=== PATIENT | male | born 1935 | race Caucasian/White ===

== ENCOUNTER 2017-10-31 23:45 | Inpatient (IN) | payer OTHER ==
[~2017-10-31] VITALS: Ht 182.9 cm; Wt 101.0 kg
[2017-11-01] VITALS (35 sets, daily range): BP systolic 54–112; BP diastolic 30–91; PULSE 107–140; TEMP 36.6–36.9; O2SAT 85–100; Ht 182.9 cm; Wt 101.0 kg
[2017-11-01] MEDS ORDERED: ICU PROTOCOL FOR HYPERGLYCEMIA PRN (05:15)
[2017-11-01] MEDS ORDERED: VANCOMYCIN CONSULT ACTIVE PRN (05:30)
[2017-11-01] MEDS ORDERED: PIPERACILL/TAZOBAC CONSULT ACTIVE PRN (05:30)
[2017-11-01] MEDS ORDERED: BENZONATATE 100MG CAP PO PRN (05:45)
[2017-11-01] MEDS ORDERED: ACETAMINOPHEN 325 MG TAB PO PRN (05:45)
[2017-11-01] MEDS ORDERED: OXYCODONE HCL IR 5 MG TAB (IMMEDIATE RELEASE) PO PRN (05:45)
[2017-11-01] MEDS ORDERED: ONDANSETRON 8MG OD TAB PO PRN (05:45)
[2017-11-01] MEDS ORDERED: DOCUSATE SODIUM 100 MG/10 ML UDC PO PRN (05:45)
[2017-11-01] MEDS ORDERED: BISACODYL 5 MG TABEC PO PRN (05:45)
[2017-11-01] MEDS ORDERED: NYSTATIN POWDER 15GM BTL EXT PRN (05:45)
[2017-11-01] MEDS ORDERED: PIPERACILL/TAZOBAC IV 3.375 GM in DEXTROSE 5% 50ML 50 ML IV ONE (05:45)
[2017-11-01] MEDS ORDERED: MIDODRINE 10 MG TAB PO PRN (05:45)
[2017-11-01 06:21] LABS: BASO % 0.1 %; BASO ABS # 0.01 K/uL (0-0.2); EOS % 0.1 %; EOS ABS # 0.01 K/uL (0-0.5); HEMATOCRIT 42.1 % (42-52); HEMOGLOBIN 13.3 g/dL (14.0-18.0); IG# 0.04 K/uL (0.00-0.02); LYMPH % 2.8 %; LYMPH ABS # 0.32 K/uL (1.2-3.4); MEAN CELL VOLUME 122.7 fL (80-100); MEAN CORPUSCULAR HEMOGLOBIN 38.8 pg (25-34); MEAN CORPUSCULAR HGB CONC 31.6 g/dl (32-36); MEAN PLATELET VOLUME 11.4 fL (7.4-10.4); MONO ABS # 0.57 K/uL (0.11-0.59); NEUT % 91.7 %; NUCLEATED RED BLOOD CELL ABS 0.46 K/uL (0-0); PLATELET COUNT 107 K/uL (130-400); RED CELL DISTRIBUTION WIDTH CV 21.6 % (11.5-14.5); RED CELL DISTRIBUTION WIDTH SD 97.2 fL (36.4-46.3); WHITE BLOOD COUNT 11.45 K/uL (4.8-10.8)
[2017-11-01] MEDS ORDERED: LEVOFLOXACIN / D5W 750 MG in PREMIXED IN D5W 150 ML IV SCH (06:30)
[2017-11-01] MEDS ORDERED: LEVOFLOXACIN CONSULT ACTIVE PRN (06:30)
--- NOTE | 2017-11-01 06:35 | DIAGNOSTIC IMAGING REPORT ---
CHEST ONE VIEW PORTABLE CLINICAL HISTORY: For Line Placement/Intubation. Acute renal failure. Congestion. COMPARISON STUDY: No previous studies for comparison. FINDINGS: A dual lead left subclavian pacemaker is in place. There is no pneumothorax. There is moderate enlargement of the cardiac silhouette. There are suspected bilateral pleural effusions with bibasilar opacities. There may be elevation the right hemidiaphragm. There is no evidence for pulmonary edema. IMPRESSION: 1. Moderate cardiomegaly without evidence for pulmonary edema. 2. Suspected bilateral pleural effusions with bibasilar opacities which could reflect atelectasis or consolidation. Radiographic follow up is recommended. Electronically signed by: Padilla Gonzalez M.D. 11/01/2017 6:34 AM Dictated Date/Time: 11/01/2017 6:29 AM
[2017-11-01 06:46] LABS: ALBUMIN 2.6 gm/dl (3.4-5.0); CALCIUM 8.7 mg/dl (8.5-10.1); CREATININE 3.83 mg/dl (0.60-1.40); INR 1.5 (0.9-1.1); PTT PATIENT 35.7 SECONDS (21.0-31.0)
[2017-11-01 06:52] LABS: CKMB 3.1 ng/ml (0.5-3.6); PHOSPHORUS 2.5 mg/dl (2.5-4.9); TOTAL PROTEIN 6.5 gm/dl (6.4-8.2)
[2017-11-01] MEDS: LEVALBUTEROL 1.25MG/0.5ML NEB INH SCH ×3 (07:06→20:17)
[2017-11-01] MEDS: IPRATROPIUM BROMIDE NEB SOLN 0.02% 2.5 ML VIAL INH SCH ×3 (07:06→20:17)
--- NOTE | 2017-11-01 07:34 | Critical Care Consultation ---
Critical Care Consultation Date of Consultation: Nov 01, 2017. Attending Physician: Doug Gonzalez M.D. Reason for Consultation: 82-year-old male with end-stage renal disease presenting from outside facility as a direct admission for hypotension and volume overload. History of Present Illness Patient is an 82-year-old male with significant past medical history of end- stage renal disease requiring Thursday/Thursday/Thursday dialysis treatments. The patient has history of CHF as well as atrial fibrillation on Coumadin for anticoagulation. The patient has shortness of breath at baseline requiring supplemental oxygen at home. He has had progressively worsening shortness of breath over the last 48 hours requiring an additional dialysis treatment on Thursday. He was sent from dialysis to the [facility] emergency department secondary to hypotension. Our facility was contacted by [facility] for transfer to higher level of care secondary to possible need for dialysis treatments in the setting of volume overload and CHF. Patient was initially placed on dobutamine in the emergency department. He was transferred to our facility on Levothroid at our recommendation. He received pain medication for his chronic pain syndromes. Upon arrival to the ICU, the patient is resting comfortably. He does complain of shortness of breath which she states occurs all the time and is not new. He denies any fevers or chills. He reports no recent upper respiratory infections. He denies any current headaches, dizziness, lightheadedness, chest pain, palpitations, hemoptysis, nausea, vomiting, or abdominal pain. Past Medical/Surgical History Sick sinus syndrome Pneumonia Dyspnea Hypotension End-stage renal disease Pulmonary edema Obstructive sleep apnea syndrome Diabetes mellitus type 2 Gout Hypothyroidism GERD Osteoarthritis of the knee MRSA CHF Chronic wounds of the lower extremities Atrial fibrillation Hypertension HLD Family History Noncontributory Social History Smoking Status: Never Smoker Smokeless Tobacco Use: No Alcohol Use: none Drug Use: none Marital Status: Housing Status: [facility] Occupation Status: retired Allergies Coded Allergies: Clonidine (Unverified Allergy, Unknown, Unknown, 11/01/17) Erythromycin (Unverified Allergy, Unknown, Unknown, 11/01/17) Glyburide (Unverified Allergy, Unknown, Unknown, 11/01/17) Metolazone (Unverified Allergy, Unknown, Unknown, 11/01/17) Olmesartan (Unverified Allergy, Unknown, unkown, 11/01/17) Simvastatin (Unverified Allergy, Unknown, Unknown, 11/01/17) Current Inpatient Medications Current Inpatient Medications Medications (Trade) Dose Ordered Sig/Monica Route Start Time Stop Time Status Last Admin Dose Admin Norepinephrine Bitartrate 8 mg/ Dextrose 508 ml @ 0 mls/hr Q0M PRN IV 11/01/17 05:02 12/01/17 05:01 Pantoprazole Sodium 40 mg/ Syringe 10 ml @ 5 mls/min DAILY IV 11/01/17 09:00 12/01/17 08:59 Levalbuterol (Xopenex 1.25MG/ 0.5ML Neb) 1.25 mg Q6R INH 11/01/17 09:00 12/01/17 08:59 Ipratropium [place] (Atrovent 0.02% 0.5MG/2.5ML Neb) 0.5 mg Q6R INH 11/01/17 09:00 12/01/17 08:59 Miscellaneous Information (Icu Protocol For Hyperglycemia) 1 ea PRN PRN N/A 11/01/17 05:15 11/03/17 05:14 Vancomycin HCl 1000 mg/Sodium Chloride 270 ml @ 125 mls/hr Q12 IV 11/01/17 09:00 11/11/17 08:59 UNV Miscellaneous Information (Consult) 1 ea UD PRN N/A 11/01/17 05:30 12/01/17 05:29 Piperacillin Sod/ Tazobactam Sod 3.375 gm/Dextrose 115 ml @ 28.75 mls/ hr Q12 IV 11/01/17 09:00 11/11/17 08:59 UNV Miscellaneous Information (Consult) 1 ea UD PRN N/A 11/01/17 05:30 12/01/17 05:29 Levofloxacin 750 mg/Prmx 150 ml @ 100 mls/hr TODAY@0630 IV 11/01/17 06:30 11/01/17 07:59 Acetaminophen (Tylenol Tab) 650 mg Q4H PRN PO 11/01/17 05:45 12/01/17 05:44 Allopurinol (Zyloprim Tab) 100 mg QAM PO 11/01/17 09:00 12/01/17 08:59 Amiodarone HCl (Cordarone Tab) 200 mg QAM PO 11/01/17 09:00 12/01/17 08:59 Atorvastatin Calcium (Lipitor Tab) 20 mg HS PO 11/01/17 21:00 12/01/17 20:59 Benzonatate (Tessalon Perles Cap) 100 mg TID PRN PO 11/01/17 05:45 12/01/17 05:44 Bisacodyl (Dulcolax Tab) 5 mg BID PRN PO 11/01/17 05:45 12/01/17 05:44 Docusate Sodium (coLACE SYRUP) 50 mg BID PRN PO 11/01/17 05:45 12/01/17 05:44 Senna/Docusate Sodium (Senokot S Tab) 2 tab HS PO 11/01/17 21:00 12/01/17 20:59 Levothyroxine Sodium (Synthroid Tab) 112 mcg DAILYBB PO 11/01/17 06:00 12/01/17 05:59 Magnesium Oxide (Mag-Ox Tab) 400 mg QAM PO 11/01/17 09:00 12/01/17 08:59 Midodrine (Proamatine Tab) 20 mg DAILY PRN PO 11/01/17 05:45 12/01/17 05:44 Midodrine (Proamatine Tab) 10 mg TID@08,12,17 PO 11/01/17 08:00 12/01/17 07:59 Vitamin B Complex/ Vit C/Folic Acid (Nephrocaps) 1 cap DAILY PO 11/01/17 09:00 12/01/17 08:59 Nystatin (Mycostatin Powder) 1 appln TID PRN EXT 11/01/17 05:45 12/01/17 05:44 Oxycodone HCl (Roxicodone Immediate Rel Tab) 2.5 mg Q12H PRN PO 11/01/17 05:45 11/15/17 05:44 Polyethylene (Miralax Powder Packet) 17 gm QPM PO 11/01/17 21:00 12/01/17 20:59 Triamcinolone Acetonide (Kenalog 0.1% Oint) 1 appln BID EXT 11/01/17 09:00 12/01/17 08:59 Warfarin Sodium (Coumadin Tab) 2 mg QPM PO 11/01/17 21:00 12/01/17 20:59 UNV Ondansetron HCl (Zofran Odt) 8 mg Q8H PRN PO 11/01/17 05:45 12/01/17 05:44 Levofloxacin (Consult) 1 ea UD PRN N/A 11/01/17 06:30 12/01/17 06:29 Review of Systems A complete 10-point Review of Systems was discussed with the patient, with pertinent positives and negatives listed in the History of Present Illness. All remaining Review of Systems questions can be considered negative unless otherwise specified. Physical Exam Date Time Temp Pulse Resp B/P (MAP) Pulse Ox O2 Delivery O2 Flow Rate FiO2 11/01/17 06:12 111 34 99/30 (53) 92 Nasal Cannula 4.0 11/01/17 05:00 110 84/53 (63) 94 Nasal Cannula 4.0 11/01/17 04:56 110 72/50 (57) 91 Nasal Cannula 4.0 11/01/17 04:32 36.7 112 30 103/91 (95) 90 Nasal Cannula 4.0 11/01/17 04:20 36.7 112 22 103/91 93 Nasal Cannula 4.0 VITAL SIGNS - Vital signs and nursing notes were reviewed. GENERAL - 82-year-old male appearing his stated age who is in no acute distress. Communicates well with provider and answers questions appropriately. SKIN - Multiple skin tears. Multiple pressure-like wounds. HEAD - NC/AT. EYES - PERRL with EOMI bilaterally. Sclera anicteric. EARS - No deformities of external structures noted on gross examination bilaterally. NOSE - Midline and without cyanosis. MOUTH/OROPHARYNX - Without perioral cyanosis. Buccal mucosa pink and dry. NECK - Neck with FROM. Supple to palpation. LUNGS - Chest wall symmetric without accessory muscle use, intercostals retractions, or central cyanosis. Normal vesicular breath sounds CTA B/L. No wheezes, rales, or rhonchi appreciated. CARDIAC - RRR with S1/S2. No murmur, rubs, or gallops appreciated. ABDOMEN - Abdominal contour scaphoid without pulsations or visible masses. BS normoactive all four quadrants. No tenderness, palpable masses, hepatosplenomegaly, or ascites noted. EXTREMITIES - Bilateral lower extremity edema. NEUROLOGIC - Cranial nerves II through XII grossly intact. PSYCH - A&Ox3 and cooperates fully with examiner. Pt is very pleasant and interacts well with examiner. Laboratory Results Last 24 Hours Test 11/01/17 05:02 11/01/17 05:42 11/01/17 05:51 11/01/17 06:11 Creatine Kinase MB Ratio Blood Gas Sample Site R Radial Bedside Blood Gas pH (LAB) 7.35 Bedside Blood Gas pCO2 (LAB) 42 mmHg Bedside Blood Gas pO2 (LAB) 77 mmHg Bedside Blood Gas HCO3 (LAB) 24 meq/L Bedside Blood Gas Total CO2 25 mEq/l Bedside Blood Gas Base Excess (LAB) -2.0 meq/L Bedside Blood Gas O2 Saturation 95.0 % [place] Test Pass Oxygen Delivery Device Cannula Lactic Acid Level 2.9 mmol/L White Blood Count 11.45 K/uL Red Blood Count 3.43 M/uL Hemoglobin 13.3 g/dL Hematocrit 42.1 % Mean Corpuscular Volume 122.7 fL Mean Corpuscular Hemoglobin 38.8 pg Mean Corpuscular Hemoglobin Concent 31.6 g/dl Platelet Count 107 K/uL Mean Platelet Volume 11.4 fL Neutrophils (%) (Auto) 91.7 % Lymphocytes (%) (Auto) 2.8 % Monocytes (%) (Auto) 5.0 % Eosinophils (%) (Auto) 0.1 % Basophils (%) (Auto) 0.1 % Neutrophils # (Auto) 10.50 K/uL Lymphocytes # (Auto) 0.32 K/uL Monocytes # (Auto) 0.57 K/uL Eosinophils # (Auto) 0.01 K/uL Basophils # (Auto) 0.01 K/uL RDW Standard Deviation 97.2 fL RDW Coefficient of Variation 21.6 % Immature Granulocyte % (Auto) 0.3 % Immature Granulocyte # (Auto) 0.04 K/uL Nucleated RBC Absolute Count (auto) 0.46 K/uL Nucleated Red Blood Cells % 4.0 % Diagnostic Results Radiological imaging and reports were reviewed by myself. Radiologist's Interpretation as follows: CHEST ONE VIEW PORTABLE CLINICAL HISTORY: For Line Placement/Intubation. Acute renal failure. Congestion. COMPARISON STUDY: No previous studies for comparison. FINDINGS: A dual lead left subclavian pacemaker is in place. There is no pneumothorax. There is moderate enlargement of the cardiac silhouette. There are suspected bilateral pleural effusions with bibasilar opacities. There may be elevation the right hemidiaphragm. There is no evidence for pulmonary edema. IMPRESSION: 1. Moderate cardiomegaly without evidence for pulmonary edema. 2. Suspected bilateral pleural effusions with bibasilar opacities which could reflect atelectasis or consolidation. Radiographic follow up is recommended. Assessment & Plan (1) Pneumonia (2) CHF (congestive heart failure) (3) ESRD on hemodialysis (4) Hypotension Reason Critically Ill: 82-year-old male with end-stage renal disease presenting from outside facility as a direct admission for hypotension and volume overload. Neuro - * CAM ICU: NEGATIVE * Chronic Pain: * Oxycodone/Tylenol PRN Cardiac - * CHF with hypotension in the setting of ARF on hemodialysis: * Check Echo for EF. * Needed additional round of dialysis yesterday. * BNP >02113 * Patient clinically volume down on exam. * On Midodrine daily and PRN w/ dialysis. * ??End stages of renal disease with superimposed CHF?? * ?Progression to palliation. * Low dose Levophed at this point - would ideally titrate off as MAPs maintain. * A. Fib: * Continue Amiodarone/Coumadin * Monitor on tele. * EKGs Respiratory - * Chronic hypoxia requiring home O2 - continue O2 PRN. * Possible RLL infiltrate: * Antibiotics/Nebs * DO NOT INTUBATE GI - * GERD - Protonix * NPO while pressors titrating. RENAL/LYTES - * ESRD w/ M/W/F HD: * Will repeat labs upon arrival. * Patient clinically volume down. * Appreciate nephrology guidance . * Monitor electrolytes - replace appropriately. - * Anuric ENDO - * Diabetes Mellitus: * ISS/gtt per protocols. * Hypothyroidism: * Continue Levothyroxine. * Check TSH HEME - * Stable H&H * Anticoagulated on Coumadin for A.fib ID - * ??Pneumonia: * Vanc/Zosyn/Levaquin * Multiple wounds of the lower extremities: * Abx as above. * Will check blood cultures. * Wound cultures as needed. LINES/IV ACCESS - * PIVs intact. * PICC vs CVL DVT PROPHYLAXIS - * Currently on Coumadin for A.fib - continue. * Hold SCDs 2/2 B/LLE wounds. CODE STATUS: * Prior documentation for outpatient facility was reviewed with the patient. After lengthy conversation. The patient wishes to a pulled his previous DO NOT RESUSCITATE/DO NOT INTUBATE requests. * Did speak with patient's daughter, Pooja Krishna ([phone]). She reports being patient's POA. She requests to be contacted with any updates. I have personally spent 45 minutes of critical care time in the direct management of this patient. This is a life/limb threatening event. This includes time spent evaluating patient, direct bedside care, chart review, placing orders, interpretation of diagnostic studies, discussion with consultants, patient, and family members, as well as other required patient management activities. This time is exclusive of all separately billable procedures, and teaching time and separate from and in addition to any other critical care service time. Thank you for this consultation allow us to be part of this patient's care. Please refer to my attending physician's documentation for any further recommendations. Attending addendum: The patient was seen, examined independently, agree with assessment and plan my colleague Franky. In summary, this is a 82-year-old gentleman who was transferred to us from [facility] for critical care management and renal management. He is end-stage renal disease on hemodialysis and history of congestive heart failure , atrial fibrillation on Coumadin, presented with increasing shortness of breath and increased swelling in his lower extremities. The patient did not have any cough or shortness of breath when I interviewed him. He was laying down flat without any difficulty breathing. No nausea or vomiting reported. The patient was DO NOT RESUSCITATE and DO NOT INTUBATE. The patient did not have any fever, no constitutional symptoms. In the past few days, the patient has been requiring dialysis on a daily basis. He did receive 4 doses in 4 days. With that the patient continued to have shortness of breath according to him. When I interviewed him also the patient was somnolent but arousable and following commands appropriately. He is aware of his illness as well. Review of system was not obtainable except for the above. History of complaint was pain in his lower extremities due to the extensive venous stasis, edema and possible superimposed cellulitic changes. The patient blood pressure was difficult to manage due to the patient had peripheral arterial disease. Empirically the patient was started on levophed. The patient lost his only IV in the periphery and acquired placement of central line. It was done in the left IJ anteriorly and dictated separately. His physical exam revealed elderly gentleman, following commands, does have dry mucosa, he had right arm AV fistula, right subclavian removed Tong catheter, heart examination S1-S2 regular rate and rhythm, left subclavian pacemaker, lungs with distant breath sounds bilaterally, no crackles, abdomen is obese but benign, significant edema in the lower extremities with skin changes consistent with venous stasis. His laboratory showed abnormal kidney function, slightly elevated WBC, troponin and proBNP both are elevated in a patient who had renal disease. Chest x-ray was not impressive for CHF but the patient does have guarding megaly and small pleural effusion. No infiltrate that I can appreciate. Impression: #1 end-stage renal disease, blood pressure measurement is likely inaccurate via the arm cuff. #2 I could not find a source of sepsis however I cannot rule out cellulitis. Evidently the patient does not have pneumonia. #3 congestive heart failure with small bilateral pleural effusion. I have performed ultrasound of the bedside which showed very negligible amount of pleural effusion. #4 atrial fibrillation, pacemaker in place and rate controlled with amiodarone, he is on Coumadin. #5 altered mental status secondary to chronic vascular disease due to the above. Plan: #1 I have placed central line, transduced CVP which showed CVP at rest of 15. The patient remains fluid overloaded. #2 I will continue with current antibiotics until cultures returned negative. In 72 hours antibiotics can be stopped. The cellulitic changes are concerning in the lower extremities which should be treated for a longer course. #3 appreciate nephrology input. #4 hopefully dialysis in the morning, I am not sure about the blood pressure in this patient as a measurement would not be accurate given his significant shunting from AV fistula and peripheral arterial disease. #5 agree with obtaining echocardiogram to evaluate his cardiac status. #6 no significant pleural effusion to perform thoracentesis. #7 GI prophylaxis. #8 renal diet. #9 DO NOT RESUSCITATE and DO NOT INTUBATE. #10 Taper Levophed to off. Case discussed with the staff on rounds and details. Critical care time spent with the patient was 60 minutes excluding procedure time. Problem Qualifiers (1) Pneumonia: Aspiration pneumonia type: unspecified Laterality: unspecified laterality Lung location: unspecified part of lung (2) CHF (congestive heart failure): Congestive heart failure type: unspecified Congestive heart failure chronicity : chronic Qualified Codes: I50.9 - Heart failure, unspecified
[2017-11-01] MEDS: MIDODRINE 10 MG TAB PO SCH ×4 (08:00→16:35)
[2017-11-01] MEDS: AMIODARONE 200 MG TAB PO SCH ×2 (08:49→10:42)
[2017-11-01] MEDS: ALLOPURINOL 100 MG TAB PO SCH ×2 (08:49→09:00)
[2017-11-01] MEDS: MAGNESIUM OXIDE 400 MG TAB PO SCH ×2 (08:49→09:00)
[2017-11-01] MEDS: TRIAMCINOLONE ACET 0.1% OINT 15 GM TUBE EXT SCH ×2 (08:49→21:00)
[2017-11-01] MEDS: NEPHROCAPS PO SCH ×2 (08:49→09:00)
[2017-11-01] MEDS: LEVOTHYROXINE 112 MCG TAB PO SCH ×2 (08:49→09:00)
[2017-11-01] MEDS ORDERED: VANCOMYCIN INJ 1,000 MG in SODIUM CHLORIDE 0.9% 250ML 250 ML IV SCH (09:00)
[2017-11-01] MEDS ORDERED: VANCOMYCIN INJ 2,000 MG in SODIUM CHLORIDE 0.9% 250ML 250 ML IV ONE (09:00)
[2017-11-01] MEDS: PANTOprazole INJ 40 MG in SYRINGE 0 ML IV SCH (09:00)
--- NOTE | 2017-11-01 11:03 | Nephrology Consultation ---
Nephrology Consultation Date & Providers Date of Consultation: Nov 01, 2017. Primary Care Provider: Delano Gomes D.O. Referring Provider: Reason for Consultation Management of end-stage renal disease on hemodialysis and evaluation for emergency dialysis. History of Present Illness Mr. Reji Boles is a 82-year-old male with past medical history significant for end-stage renal disease on hemodialysis, hypertension, diabetes, history of sick sinus syndrome status post pacemaker, chronic lower extremity ulcer admitted to the hospital as a direct admit from [facility] for worsening shortness of breath and possible need for urgent dialysis. Electronic medical records including labs and imaging are reviewed in detail during patient's visit. Patient's family was at bedside during the visit. Mr. Boles has end-stage renal disease secondary to has been on hemodialysis for last 1 year, unclear etiology for end-stage renal disease, patient could not provide any detailed cause for his renal failure. He is on dialysis Thursday/ Thursday/Thursday at [place] dialysis unit. He dialysis via right brachiocephalic AV fistula. He has h/o the autonomic dysfunction, has been on Midodrine 20 milligram daily. Has history of CHF as well as atrial fibrillation on amiodarone and Coumadin for anticoagulation. The patient has shortness of breath at baseline requiring supplemental oxygen at home. He has had progressively worsening shortness of breath over the last 48 hours requiring an additional dialysis treatment on Thursday. He was sent from dialysis to the [place] emergency department secondary to hypotension. Eventually transferred here for possible need for dialysis treatments. On admission chest x-ray showed cardiomegaly with bilateral pleural effusion without any overt pulmonary congestion. He remained hypotensive despite being on Levophed. Electrolyte remain acceptable. History of sick sinus syndrome status post pacemaker. Has history of chronic lower extremity ulcer, currently on Vanco and Zosyn empirically. Recent history of right upper extremity injury causing superficial wound. Past Medical/Surgical History Medical: # ESRD on HD MWF # Sick sinus syndrome # Obstructive sleep apnea syndrome # Diabetes mellitus type 2 # Gout # Hypothyroidism # GERD # Osteoarthritis of the knee # Chronic wounds of the lower extremities # Atrial fibrillation # Hypertension Allergies Coded Allergies: Clonidine (Unverified Allergy, Unknown, Unknown, 11/01/17) Erythromycin (Unverified Allergy, Unknown, Unknown, 11/01/17) Glyburide (Unverified Allergy, Unknown, Unknown, 11/01/17) Metolazone (Unverified Allergy, Unknown, Unknown, 11/01/17) Olmesartan (Unverified Allergy, Unknown, unkown, 11/01/17) Simvastatin (Unverified Allergy, Unknown, Unknown, 11/01/17) Inpatient Medications Current Inpatient Medications Medications (Trade) Dose Ordered Sig/Monica Route Start Time Stop Time Status Last Admin Dose Admin Norepinephrine Bitartrate 8 mg/ Dextrose 508 ml @ 0 mls/hr Q0M PRN IV 11/01/17 05:02 12/01/17 05:01 Pantoprazole Sodium 40 mg/ Syringe 10 ml @ 5 mls/min DAILY IV 11/01/17 09:00 12/01/17 08:59 Levalbuterol (Xopenex 1.25MG/ 0.5ML Neb) 1.25 mg Q6R INH 11/01/17 09:00 12/01/17 08:59 11/01/17 07:06 1.25 MG Ipratropium [place] (Atrovent 0.02% 0.5MG/2.5ML Neb) 0.5 mg Q6R INH 11/01/17 09:00 12/01/17 08:59 11/01/17 07:06 0.5 MG Miscellaneous Information (Icu Protocol For Hyperglycemia) 1 ea PRN PRN N/A 11/01/17 05:15 11/03/17 05:14 Miscellaneous Information (Consult) 1 ea UD PRN N/A 11/01/17 05:30 12/01/17 05:29 Piperacillin Sod/ Tazobactam Sod 3.375 gm/Dextrose 115 ml @ 28.75 mls/ hr Q12 IV 11/01/17 09:00 11/11/17 08:59 UNV Miscellaneous Information (Consult) 1 ea UD PRN N/A 11/01/17 05:30 12/01/17 05:29 Acetaminophen (Tylenol Tab) 650 mg Q4H PRN PO 11/01/17 05:45 12/01/17 05:44 Allopurinol (Zyloprim Tab) 100 mg QAM PO 11/01/17 09:00 12/01/17 08:59 Amiodarone HCl (Cordarone Tab) 200 mg QAM PO 11/01/17 09:00 12/01/17 08:59 Atorvastatin Calcium (Lipitor Tab) 20 mg HS PO 11/01/17 21:00 12/01/17 20:59 Benzonatate (Tessalon Perles Cap) 100 mg TID PRN PO 11/01/17 05:45 12/01/17 05:44 Bisacodyl (Dulcolax Tab) 5 mg BID PRN PO 11/01/17 05:45 12/01/17 05:44 Docusate Sodium (coLACE SYRUP) 50 mg BID PRN PO 11/01/17 05:45 12/01/17 05:44 Senna/Docusate Sodium (Senokot S Tab) 2 tab HS PO 11/01/17 21:00 12/01/17 20:59 Levothyroxine Sodium (Synthroid Tab) 112 mcg DAILYBB PO 11/01/17 06:00 12/01/17 05:59 Magnesium Oxide (Mag-Ox Tab) 400 mg QAM PO 11/01/17 09:00 12/01/17 08:59 Midodrine (Proamatine Tab) 20 mg DAILY PRN PO 11/01/17 05:45 12/01/17 05:44 Midodrine (Proamatine Tab) 10 mg TID@08,12,17 PO 11/01/17 08:00 12/01/17 07:59 Vitamin B Complex/ Vit C/Folic Acid (Nephrocaps) 1 cap DAILY PO 11/01/17 09:00 12/01/17 08:59 Nystatin (Mycostatin Powder) 1 appln TID PRN EXT 11/01/17 05:45 12/01/17 05:44 Oxycodone HCl (Roxicodone Immediate Rel Tab) 2.5 mg Q12H PRN PO 11/01/17 05:45 11/15/17 05:44 Polyethylene (Miralax Powder Packet) 17 gm QPM PO 11/01/17 21:00 12/01/17 20:59 Triamcinolone Acetonide (Kenalog 0.1% Oint) 1 appln BID EXT 11/01/17 09:00 12/01/17 08:59 Warfarin Sodium (Coumadin Tab) 2 mg QPM PO 11/01/17 21:00 2/27/18 20:59 UNV Ondansetron HCl (Zofran Odt) 8 mg Q8H PRN PO 11/01/17 05:45 12/01/17 05:44 Levofloxacin (Consult) 1 ea UD PRN N/A 11/01/17 06:30 12/01/17 06:29 Levofloxacin 500 mg/Prmx 100 ml @ 100 mls/hr Q48H IV 11/03/17 11:00 11/08/17 10:59 Vancomycin HCl 2000 mg/Sodium Chloride 290 ml @ 100 mls/hr TODAY@0900 ONCE IV 11/01/17 09:00 11/01/17 11:53 Family History Asked but pt could not provide any family medical history. Social History Smoking Status: Never Smoker Smokeless Tobacco Use: No Alcohol Use: none Drug Use: none Marital Status: Occupation: retired Review of Systems A complete review of systems was performed. Pertinent positives are noted above. All other systems are negative. Physical Exam Date Time Temp Pulse Resp B/P (MAP) Pulse Ox O2 Delivery O2 Flow Rate FiO2 11/01/17 07:07 111 20 94 Nasal Cannula 4.0 11/01/17 06:12 111 34 99/30 (53) 92 Nasal Cannula 4.0 11/01/17 05:00 110 84/53 (63) 94 Nasal Cannula 4.0 11/01/17 04:56 110 72/50 (57) 91 Nasal Cannula 4.0 11/01/17 04:32 36.7 112 30 103/91 (95) 90 Nasal Cannula 4.0 11/01/17 04:20 36.7 112 22 103/91 93 Nasal Cannula 4.0 GENERAL: Elderly male AAA x 3, frail, ill-appearing, in distress with pain. HEENT: Atraumatic, normocephalic. NECK: Supple, no JVD, no carotid bruit appreciated. ENT: No sinus tenderness MOUTH and THROAT: Moist oral mucosa, no oral ulcer or pharyngeal erythema RESPIRATORY: Normal breathing efforts, no accessory muscle use, decreased breath sound bilaterally at bases. CARDIOVASCULAR: S1, S2 normal, rate rhythm regular. ABDOMEN: Soft, nontender, positive bowel sound. MUSCULOSKELETAL: No joint swelling, erythema or tenderness. Normal range of motion. SKIN: No skin rash EXTREMITY: Bilateral lower extremity with chronic skin changes, trace bilateral edema, right upper extremity with multiple skin break and superficial ulcer NEURO: No gross focal neurological deficit, speech fluent. PSYCHIATRY: Normal mood and judgment Laboratory Results Last 24 Hours Test 11/01/17 05:02 11/01/17 05:42 11/01/17 05:51 11/01/17 06:11 Creatine Kinase MB Ratio 28.2 Blood Gas Sample Site R Radial Bedside Blood Gas pH (LAB) 7.35 Bedside Blood Gas pCO2 (LAB) 42 mmHg Bedside Blood Gas pO2 (LAB) 77 mmHg Bedside Blood Gas HCO3 (LAB) 24 meq/L Bedside Blood Gas Total CO2 25 mEq/l Bedside Blood Gas Base Excess (LAB) -2.0 meq/L Bedside Blood Gas O2 Saturation 95.0 % Chaparro Test Pass Oxygen Delivery Device Cannula Lactic Acid Level 2.9 mmol/L White Blood Count 11.45 K/uL Red Blood Count 3.43 M/uL Hemoglobin 13.3 g/dL Hematocrit 42.1 % Mean Corpuscular Volume 122.7 fL Mean Corpuscular Hemoglobin 38.8 pg Mean Corpuscular Hemoglobin Concent 31.6 g/dl Platelet Count 107 K/uL Mean Platelet Volume 11.4 fL Neutrophils (%) (Auto) 91.7 % Lymphocytes (%) (Auto) 2.8 % Monocytes (%) (Auto) 5.0 % Eosinophils (%) (Auto) 0.1 % Basophils (%) (Auto) 0.1 % Neutrophils # (Auto) 10.50 K/uL Lymphocytes # (Auto) 0.32 K/uL Monocytes # (Auto) 0.57 K/uL Eosinophils # (Auto) 0.01 K/uL Basophils # (Auto) 0.01 K/uL RDW Standard Deviation 97.2 fL RDW Coefficient of Variation 21.6 % Immature Granulocyte % (Auto) 0.3 % Immature Granulocyte # (Auto) 0.04 K/uL Nucleated RBC Absolute Count (auto) 0.46 K/uL Nucleated Red Blood Cells % 4.0 % Hyposegmented Neutrophils OCCASIONAL Anisocytosis PRESENT Prothrombin Time 16.1 SECONDS Prothromb Time International Ratio 1.5 Activated Partial Thromboplast Time 35.7 SECONDS Partial Thromboplastin Ratio 1.4 Sodium Level 137 mmol/L Potassium Level 5.0 mmol/L Chloride Level 102 mmol/L Carbon Dioxide Level 26 mmol/L Anion Gap 9.0 mmol/L Blood Urea Nitrogen 52 mg/dl Creatinine 3.83 mg/dl Est Creatinine Clear Calc Drug Dose 18.6 ml/min Estimated GFR () 16.1 Estimated GFR (Non- 13.9 BUN/Creatinine Ratio 13.6 Random Glucose 91 mg/dl Calcium Level 8.7 mg/dl Phosphorus Level 2.5 mg/dl Magnesium Level 2.5 mg/dl Total Bilirubin 1.3 mg/dl Direct Bilirubin 0.7 mg/dl Aspartate Amino Transf (AST/SGOT) 27 U/L Alanine Aminotransferase (ALT/SGPT) 23 U/L Alkaline Phosphatase 135 U/L Total Creatine Kinase 11 U/L Creatine Kinase MB 3.1 ng/ml Troponin I 0.098 ng/ml Total Protein 6.5 gm/dl Albumin 2.6 gm/dl Globulin 3.9 gm/dl Albumin/Globulin Ratio 0.7 Procalcitonin 2.22 ng/ml Impression 82-year-old gentlemen with multiple comorbidities including end-stage renal disease on hemodialysis, autonomic dysfunction, history of CHF with baseline chronic shortness of breath, requiring nasal cannula oxygen at home. Has been on hemodialysis Thursday, Thursday, Thursday at [place] dialysis unit via right brachiocephalic AV fistula.. Three days prior to admission he was getting progressively short of breath, had extra dialysis treatment on Thursday in addition to his regular dialysis treatment on Thursday for ultra filtration. He normally takes Midodrine 20 milligram prior to dialysis. After dialysis he became hypotensive and he was sent to [facility] for further evaluation and eventually transferred to [facility] as he was felt to be again volume overloaded, hypotensive and may need evaluation for urgent dialysis. He has been on Levophed from outside hospital, on admission he continues to be hypotensive but remained awake and alert. Chest x-ray showed cardiomegaly, bilateral pleural effusion and atelectasis without any overt pulmonary edema. He reports resolution of shortness of breath, currently his main symptom is pain in his legs and the back. Continued on Levophed. He is getting a central line due to difficult peripheral access as his requiring pressor. Electrolyte remain acceptable. Recommendations --no indication for emergency dialysis as currently electrolyte acceptable, no pulmonary congestion. He had extra dialysis treatment yesterday and became hypotensive after treatment and remain hypotensive requiring pressor. --shortness of breath seems to be chronic now could have been wors by bilateral pleural effusion and questionable atelectasis versus pneumonia, but currently resolved. --avoid IV fluid --will plan for dialysis tomorrow and try for UF as tolerated --will try to get more information about his EDW and dialysis over last few days and the rate of ultra filtration from his outpatient dialysis unit tomorrow --continue on phosphate binder with meal --suggest repeat chest x-ray in morning for follow-up on the pleural effusion Will follow Thank you for allowing me to participate in your patient's care. It was a pleasure to see Mr. Boles
[2017-11-01] MEDS ORDERED: LIDOCAINE HCL 1% 20 ML VIAL ONE (11:50)
--- NOTE | 2017-11-01 12:45 | DIAGNOSTIC IMAGING REPORT ---
CHEST ONE VIEW PORTABLE CLINICAL HISTORY: cvl left IJ COMPARISON STUDY: Chest radiograph November 01, 2017 at 5:49 AM. FINDINGS: Note is made of interval placement of a left internal jugular central line. There is no pneumothorax. Catheter tip projects over the proximal SVC. A dual lead left subclavian pacemaker is in place. There is moderate cardiomegaly. There is no pneumothorax. Lung volumes are diminished. There are suspected small bilateral pleural effusions. There is pulmonary vascular congestion without overt pulmonary edema. IMPRESSION: 1. Interval placement of a left internal jugular central line. No pneumothorax. Catheter tip projects over proximal left SVC. 2. Suspected small bilateral pleural effusions with associated bibasilar opacities which could reflect atelectasis or consolidation. Radiographic follow-up is recommended. 3. Moderate cardiomegaly with pulmonary vascular congestion. No overt pulmonary edema. Electronically signed by: Padilla Gonzalez M.D. 11/01/2017 12:44 PM Dictated Date/Time: 11/01/2017 12:42 PM
--- NOTE | 2017-11-01 13:09 | Pharmacy Progress Note ---
Pharmacy Abx Initial Consult Date of Service Nov 01, 2017. Pharmacy Dosing Scope Date of Consult: 11/01/17 Consultation requested by: Franky Alan Pharmacy is consulted to initiate Vancomycin, Levaquin and Zosyn IV dosing therapy, order appropriate labs and adjust drug dose/frequency. Subjective The patient is a 82 year old male admitted on Nov 01, 2017 at 04:52. Objective Height (Feet): 6 Height (Inches): 0.00 Weight (Kilograms): 101.000 Vital Signs (Past 12Hrs) Vital Signs Past 12 Hours Date Time Temp Pulse Resp B/P (MAP) Pulse Ox O2 Delivery O2 Flow Rate FiO2 11/01/17 10:00 111 31 103/65 (78) 11/01/17 09:00 107 19 102/67 (79) 98 11/01/17 08:45 107 20 54/32 (39) 97 11/01/17 08:33 115 23 71/47 (55) 97 11/01/17 08:00 36.9 111 31 101/62 (75) 94 11/01/17 08:00 Ambu-Bag 4.0 11/01/17 07:41 107 17 96/62 (73) 99 11/01/17 07:07 111 20 94 Nasal Cannula 4.0 11/01/17 07:00 111 35 96/62 (73) 97 11/01/17 06:12 111 34 99/30 (53) 92 Nasal Cannula 4.0 11/01/17 05:00 110 84/53 (63) 94 Nasal Cannula 4.0 11/01/17 04:56 110 72/50 (57) 91 Nasal Cannula 4.0 11/01/17 04:32 36.7 112 30 103/91 (95) 90 Nasal Cannula 4.0 11/01/17 04:20 36.7 112 22 103/91 93 Nasal Cannula 4.0 Lab Results (24Hrs) Laboratory Tests (24 Hours) Test 11/01/17 05:51 11/01/17 06:11 Lactic Acid Level 2.9 mmol/L (0.4-2.0) *H White Blood Count 11.45 K/uL (4.8-10.8) H Red Blood Count 3.43 M/uL (4.7-6.1) L Hemoglobin 13.3 g/dL (14.0-18.0) L Hematocrit 42.1 % (42-52) Mean Corpuscular Volume 122.7 fL (80-100) H Mean Corpuscular Hemoglobin 38.8 pg (25-34) H Mean Corpuscular Hemoglobin Concent 31.6 g/dl (32-36) L Platelet Count 107 K/uL (130-400) L Mean Platelet Volume 11.4 fL (7.4-10.4) H Neutrophils (%) (Auto) 91.7 % Lymphocytes (%) (Auto) 2.8 % Monocytes (%) (Auto) 5.0 % Eosinophils (%) (Auto) 0.1 % Basophils (%) (Auto) 0.1 % Neutrophils # (Auto) 10.50 K/uL (1.4-6.5) H Lymphocytes # (Auto) 0.32 K/uL (1.2-3.4) L Monocytes # (Auto) 0.57 K/uL (0.11-0.59) Eosinophils # (Auto) 0.01 K/uL (0-0.5) Basophils # (Auto) 0.01 K/uL (0-0.2) Procalcitonin 2.22 ng/ml (0-0.5) H Total Creatine Kinase 11 U/L (39-308) L Micro Results Date/Time Source Procedure Growth Status 11/01/17 06:11 Blood Blood Culture Pending Received 11/01/17 05:51 Blood Blood Culture Pending Received 11/01/17 05:10 Nasal MRSA DNA Surveillance Screen - Final Specimen Negative for MRSA by DNA Probe Complete Risk Factors for Resistance * Chronic dialysis within the past 30 days Assessment & Plan Assessment 82 year old male with ESRD, CHF, Afib, and chronic LE ulcer admitted from [facility] for pneumonia and volume overload. Franky Alan has requested the pt's antibiotics be concentrated due to the volume overload status. Pt is anuric and has HD on MWF. Last HD was tuesday 10/31. Blood cultures pending. MRSA nasal swab negative. Plan Vancomycin, Levaquin and Zosyn for treatment of pneumonia. Vancomycin IV * Loading dose: 2000 mg (20 mg/kg) in 250mL NS * Goal trough level for pneumonia : 15 to 20 mcg/mL * Random level ordered for 11/02 with am labs * HD is expected on daysi 1/29 Piperacillin/tazobactam * 4.5 g bolus administered over 30 minutes, then 3.375 g in 50 mL D5 IV extended infusion every 12 hours for dialysis. Levaquin * 750mg IV x 1 * then 500mg IV q 48 hours for pts on HD * Levaquin is premixed and cannot be concentrated Pharmacy will continue to follow and will adjust dose/frequency as necessary. Thank you.
[2017-11-01] MEDS ORDERED: PERFLUTREN LIPID MICROSPHERE (DEFINITY) IV ONE (13:57)
[2017-11-01] MEDS: NOREPINEPHRINE BIT INJ 8 MG in DEXTROSE 5% 500ML 500 ML IV PRN (15:05)
[2017-11-01] MEDS: WARFARIN SOD 2 MG TAB PO SCH (16:00)
--- NOTE | 2017-11-01 16:06 | Procedure Note ---
Procedure Note Procedure Date Nov 01, 2017. Procedure Description Procedure time out: side/site verified, patient ID confirmed, correct procedure Consent obtained: written Performed by: attending Indications: diagnostic, therapeutic Contraindications: none Description: Central line placement, needed for pressors and CVP measurement. Consent obtained from the patient, risk and benefit explained in details agreed to the procedure. The patient was concerned about his pacemaker and I assured him I would be very careful not to interfere with his lead. The patient was placed in flat position. Under ultrasound guidance, the right- sided was attempted initially under strict sterile field using 10 mL of 1% lidocaine. The wire was unable to thread through the needle. Left-sided attempt was done under strict sterile technique using chlorhexidine to prep the skin, the skin was injected with 5 mL 1% lidocaine, the vessel is noncompressible and likely due to chronic peripheral vascular disease. Able to place central line using Seldinger technique to 15 cm and secured with 2 sutures , and with surgical dressing. All ports were flushed with normal saline. Tolerated the procedure well. No immediate complication. Chest x-ray showed the tip of the catheter at the SVC, no pneumothorax. Will transduce CVP.
[2017-11-01] MEDS: PIPERACILL/TAZOBAC IV 3.375 GM in DEXTROSE 5% 50ML 50 ML IV SCH (17:27)
[2017-11-01] MEDS ORDERED: POLYETHYLENE (MIRALAX) 17 GM PACK PO SCH (21:00)
[2017-11-01] MEDS ORDERED: ATORVASTATIN 20 MG TAB PO SCH (21:00)
[2017-11-01] MEDS ORDERED: DOCUSATE SODIUM/SENNA 50/8.6MG TAB PO SCH (21:00)
[2017-11-01 21:59] LABS: CKMB 2.9 ng/ml (0.5-3.6)
[2017-11-01] MEDS: HYDROmorphone INJ 0.5 MG/0.5 ML SYR IV PRN (23:46)
--- NOTE | 2017-11-01 23:47 | History and Physical ---
History & Physical Date & Time of Service: Nov 01, 2017 at 08:05 Chief Complaint: Esrd On Hemodialysis, Hypotension Primary Care Physician: Delano Gomes D.O. History of Present Illness Source: patient, hospital records This pt is an 82-year-old male with end-stage renal disease presenting from outside facility as a direct admission for hypotension and volume overload. Patient is an 82-year-old male with significant past medical history of end- stage renal disease requiring Thursday/Thursday/Thursday dialysis treatments. The patient has history of CHF as well as atrial fibrillation on Coumadin for anticoagulation. The patient has shortness of breath at baseline requiring supplemental oxygen at home. He has had progressively worsening shortness of breath over the last 48 hours requiring an additional dialysis treatment on Thursday. He was sent from dialysis to the [place] emergency department secondary to hypotension. Our facility was contacted by [facility] for transfer to higher level of care secondary to possible need for dialysis treatments in the setting of volume overload and CHF. Patient was initially placed on dobutamine in the emergency department. He was transferred to our facility on Levophed at our recommendation. He received pain medication for his chronic pain syndromes. He was continued on Levophed here and had a left IJ placed; he has very difficult vascular access as per Peer Support Specialist. Pt denies any current symptoms, seems confused, drowsy. Seen by Nephrology since admission and has no need for HD today. BPs quite low and on Levophed, however Peer Support Specialist thinks BPs with cuff are not accurate due to PVD. He has evidence of infection with elevated PCT, borderline leukocytosis, most likely source of infection is RLE cellulitis and leg wounds. Past Medical/Surgical History Sick sinus syndrome s/p PPM Pneumonia Dyspnea Hypotension End-stage renal disease on HD Pulmonary edema Obstructive sleep apnea syndrome Diabetes mellitus type 2 Gout Hypothyroidism GERD Osteoarthritis of the knee MRSA CHF Chronic wounds of the lower extremities Atrial fibrillation Hypertension HLD Family History noncontributory Social History Smoking Status: Never Smoker Smokeless Tobacco Use: No Alcohol Use: none Drug Use: none Marital Status: Occupational Status: retired Allergies Coded Allergies: Clonidine (Unverified Allergy, Unknown, Unknown, 11/01/17) Erythromycin (Unverified Allergy, Unknown, Unknown, 11/01/17) Glyburide (Unverified Allergy, Unknown, Unknown, 11/01/17) Metolazone (Unverified Allergy, Unknown, Unknown, 11/01/17) Olmesartan (Unverified Allergy, Unknown, unkown, 11/01/17) Simvastatin (Unverified Allergy, Unknown, Unknown, 11/01/17) Review of Systems not obtainable at the time of my interview due to drowsiness Physical Exam Vital Signs Date Time Temp Pulse Resp B/P (MAP) Pulse Ox O2 Delivery O2 Flow Rate FiO2 11/01/17 07:07 111 20 94 Nasal Cannula 4.0 11/01/17 06:12 111 34 99/30 (53) 92 Nasal Cannula 4.0 11/01/17 05:00 110 84/53 (63) 94 Nasal Cannula 4.0 11/01/17 04:56 110 72/50 (57) 91 Nasal Cannula 4.0 11/01/17 04:32 36.7 112 30 103/91 (95) 90 Nasal Cannula 4.0 11/01/17 04:20 36.7 112 22 103/91 93 Nasal Cannula 4.0 General Appearance: no apparent distress, + pertinent finding (chronically ill appearing) Head: normocephalic, atraumatic Eyes: normal inspection, sclerae normal ENT: hearing grossly normal, + pertinent finding (poor dentition) Neck: trachea midline Respiratory/Chest: no respiratory distress, no accessory muscle use, + decreased breath sounds (throughout) Cardiovascular: no murmur, + tachycardia, + pertinent finding (anasarca in all extremities; RUE AVF present; LIJ CVC in place) Abdomen/GI: normal bowel sounds, non tender, soft Extremities/Musculoskelatal: no calf tenderness, + swelling (3+ pitting edema RLE>LLE with chronic venous stasis changes feet bilat with crusted scabs on right foot, dressing over wound on right leg c/d/i, right leg and distal thigh with erythema) Neurologic/Psych: + pertinent finding (drowsy, wakes up to verbal stimulus and then drifts back to sleep) Skin: warm/dry Diagnostics Laboratory Results Results Past 24 Hours Test 11/01/17 05:02 11/01/17 05:42 11/01/17 05:51 11/01/17 06:11 Range/Units Creatine Kinase MB Ratio 28.2 0-3.0 Blood Gas Sample Site R Radial Bedside Blood Gas pH (LAB) 7.35 7.35-7.45 Bedside Blood Gas pCO2 (LAB) 42 35-46 mmHg Bedside Blood Gas pO2 (LAB) 77 80-95 mmHg Bedside Blood Gas HCO3 (LAB) 24 19-24 meq/L Bedside Blood Gas Total CO2 25 24-31 mEq/l Bedside Blood Gas Base Excess (LAB) -2.0 -9-1.8 meq/L Bedside Blood Gas O2 Saturation 95.0 90-95 % Chaparro Test Pass Oxygen Delivery Device Cannula Lactic Acid Level 2.9 0.4-2.0 mmol/L White Blood Count 11.45 4.8-10.8 K/uL Red Blood Count 3.43 4.7-6.1 M/uL Hemoglobin 13.3 14.0-18.0 g/dL Hematocrit 42.1 42-52 % Mean Corpuscular Volume 122.7 80-100 fL Mean Corpuscular Hemoglobin 38.8 25-34 pg Mean Corpuscular Hemoglobin Concent 31.6 32-36 g/dl Platelet Count 107 130-400 K/uL Mean Platelet Volume 11.4 7.4-10.4 fL Neutrophils (%) (Auto) 91.7 % Lymphocytes (%) (Auto) 2.8 % Monocytes (%) (Auto) 5.0 % Eosinophils (%) (Auto) 0.1 % Basophils (%) (Auto) 0.1 % Neutrophils # (Auto) 10.50 1.4-6.5 K/uL Lymphocytes # (Auto) 0.32 1.2-3.4 K/uL Monocytes # (Auto) 0.57 0.11-0.59 K/uL Eosinophils # (Auto) 0.01 0-0.5 K/uL Basophils # (Auto) 0.01 0-0.2 K/uL RDW Standard Deviation 97.2 36.4-46.3 fL RDW Coefficient of Variation 21.6 11.5-14.5 % Immature Granulocyte % (Auto) 0.3 % Immature Granulocyte # (Auto) 0.04 0.00-0.02 K/uL Nucleated RBC Absolute Count (auto) 0.46 0-0 K/uL Nucleated Red Blood Cells % 4.0 % Hyposegmented Neutrophils OCCASIONAL Anisocytosis PRESENT Prothrombin Time 16.1 9.0-12.0 SECONDS Prothromb Time International Ratio 1.5 0.9-1.1 Activated Partial Thromboplast Time 35.7 21.0-31.0 SECONDS Partial Thromboplastin Ratio 1.4 Sodium Level 137 136-145 mmol/L Potassium Level 5.0 3.5-5.1 mmol/L Chloride Level 102 98-107 mmol/L Carbon Dioxide Level 26 21-32 mmol/L Anion Gap 9.0 3-11 mmol/L Blood Urea Nitrogen 52 7-18 mg/dl Creatinine 3.83 0.60-1.40 mg/dl Est Creatinine Clear Calc Drug Dose 18.6 ml/min Estimated GFR () 16.1 Estimated GFR (Non- 13.9 BUN/Creatinine Ratio 13.6 10-20 Random Glucose 91 70-99 mg/dl Calcium Level 8.7 8.5-10.1 mg/dl Phosphorus Level 2.5 2.5-4.9 mg/dl Magnesium Level 2.5 1.8-2.4 mg/dl Total Bilirubin 1.3 0.2-1 mg/dl Direct Bilirubin 0.7 0-0.2 mg/dl Aspartate Amino Transf (AST/SGOT) 27 15-37 U/L Alanine Aminotransferase (ALT/SGPT) 23 12-78 U/L Alkaline Phosphatase 135 45-117 U/L Total Creatine Kinase 11 39-308 U/L Creatine Kinase MB 3.1 0.5-3.6 ng/ml Troponin I 0.098 0-0.045 ng/ml Total Protein 6.5 6.4-8.2 gm/dl Albumin 2.6 3.4-5.0 gm/dl Globulin 3.9 2.5-4.0 gm/dl Albumin/Globulin Ratio 0.7 0.9-2 Procalcitonin 2.22 0-0.5 ng/ml Microbiology Results 11/01/17 Blood Culture, Received Pending 11/01/17 Blood Culture, Received Pending 11/01/17 MRSA DNA Surveillance Screen, Ordered Pending Diagnostic Radiology CHEST ONE VIEW PORTABLE CLINICAL HISTORY: cvl left IJ COMPARISON STUDY: Chest radiograph November 01, 2017 at 5:49 AM. FINDINGS: Note is made of interval placement of a left internal jugular central line. There is no pneumothorax. Catheter tip projects over the proximal SVC. A dual lead left subclavian pacemaker is in place. There is moderate cardiomegaly. There is no pneumothorax. Lung volumes are diminished. There are suspected small bilateral pleural effusions. There is pulmonary vascular congestion without overt pulmonary edema. IMPRESSION: 1. Interval placement of a left internal jugular central line. No pneumothorax. Catheter tip projects over proximal left SVC. 2. Suspected small bilateral pleural effusions with associated bibasilar opacities which could reflect atelectasis or consolidation. Radiographic follow-up is recommended. 3. Moderate cardiomegaly with pulmonary vascular congestion. No overt pulmonary edema. CHEST ONE VIEW PORTABLE CLINICAL HISTORY: For Line Placement/Intubation. Acute renal failure. Congestion. COMPARISON STUDY: No previous studies for comparison. FINDINGS: A dual lead left subclavian pacemaker is in place. There is no pneumothorax. There is moderate enlargement of the cardiac silhouette. There are suspected bilateral pleural effusions with bibasilar opacities. There may be elevation the right hemidiaphragm. There is no evidence for pulmonary edema. IMPRESSION: 1. Moderate cardiomegaly without evidence for pulmonary edema. 2. Suspected bilateral pleural effusions with bibasilar opacities which could reflect atelectasis or consolidation. Radiographic follow up is recommended. EKG wide QRS rhythm, paced?, inferior and septal infarct pattern Impression Assessment and Plan This pt is an 82-year-old male with end-stage renal disease on HD presenting from outside facility as a direct admission for hypotension and volume overload after symptoms of worsening SOB. ESRD on HD/Volume overload/Acute on chronic hypoxemic respiratory failure. CXR with evidence of pulm vasc congestion, bilat effusions, atelectasis. Bedside US by Pulm reveals no pleural effusions. Required 4 daily HD sessions recently -Nephrology consulted -HD likely tomorrow but low BPs today prohibiting -supplemental O2 and decrease as able to -checking ECHO Hypotension-could be inaccurate readings due to severe PVD. Is mentating ok, unsure of baseline mental status -weaning off Levophed CVP 15 and shows volume overload A. Fib, SSS s/p PPM, ELevated troponin-stable, troponin likely high but stable in setting of ESRD, ECG without acute ischemia -Continue Amiodarone/Coumadin, follow INRs -Monitor on tele Suspected cellulitis right leg-elevated PCT, borderline elevated WBC count, afebrile -Wound care consult -continue broad spectrum abx for now with Lvaquin, Vanco, Zosyn, narrow down in 72 hours if cultures remain negative GERD/Poor swallowing ability - unable to safely swallow -consult Speech Therapy, Video swallow on Thursday -keep NPO -continue Protonix IV Diabetes Mellitus II: -ISS/gtt per protocols. -check HgbA1C Hypothyroidism: -Continue Levothyroxine. -Check TSH DVT PROPHYLAXIS - Coumadin DNR/DNI Advanced Directives Existing Living Will: Yes Existing Power of Engineer Automated Equipment: Yes Resuscitation Status DO NOT RESUSCITATE VTE Prophylaxis VTE Risk Assessment Done? Y/N: Yes Risk Level: Moderate Given or contraindicated: Warfarin (Coumadin) Note Total Time: Critical Care 30 - 74 minutes Additional Copies To Delano Gomes D.O.
[2017-11-02] VITALS (26 sets, daily range): BP systolic 58–104; BP diastolic 35–62; PULSE 102–122; TEMP 36.5–36.9; O2SAT 83–100
[2017-11-02] MEDS: IPRATROPIUM BROMIDE NEB SOLN 0.02% 2.5 ML VIAL INH SCH ×4 (01:49→21:01)
[2017-11-02] MEDS: LEVALBUTEROL 1.25MG/0.5ML NEB INH SCH ×4 (01:49→21:01)
[2017-11-02] MEDS: LEVOTHYROXINE 112 MCG TAB PO SCH (05:21)
[2017-11-02] MEDS: PIPERACILL/TAZOBAC IV 3.375 GM in DEXTROSE 5% 50ML 50 ML IV SCH (05:23)
[2017-11-02] MEDS: NOREPINEPHRINE BIT INJ 8 MG in DEXTROSE 5% 500ML 500 ML IV PRN ×2 (05:23→08:43)
[2017-11-02 05:51] LABS: BASO % 0.1 %; BASO ABS # 0.01 K/uL (0-0.2); EOS % 0.1 %; EOS ABS # 0.01 K/uL (0-0.5); HEMATOCRIT 39.1 % (42-52); HEMOGLOBIN 12.4 g/dL (14.0-18.0); IG# 0.04 K/uL (0.00-0.02); LYMPH % 4.6 %; LYMPH ABS # 0.46 K/uL (1.2-3.4); MEAN CELL VOLUME 119.6 fL (80-100); MEAN CORPUSCULAR HEMOGLOBIN 37.9 pg (25-34); MEAN CORPUSCULAR HGB CONC 31.7 g/dl (32-36); MONO % 7.2 %; MONO ABS # 0.72 K/uL (0.11-0.59); NEUT % 87.6 %; NEUT ABS # 8.75 K/uL (1.4-6.5); NUCLEATED RED BLOOD CELL ABS 0.21 K/uL (0-0); PLATELET COUNT 109 K/uL (130-400); RED CELL DISTRIBUTION WIDTH CV 21.1 % (11.5-14.5); RED CELL DISTRIBUTION WIDTH SD 92.4 fL (36.4-46.3); WHITE BLOOD COUNT 9.99 K/uL (4.8-10.8)
[2017-11-02 06:06] LABS: INR 1.8 (0.9-1.1)
[2017-11-02 06:07] LABS: PTT PATIENT 46.7 SECONDS (21.0-31.0)
[2017-11-02 06:34] LABS: ALBUMIN 2.3 gm/dl (3.4-5.0); CALCIUM 8.5 mg/dl (8.5-10.1); CREATININE 4.24 mg/dl (0.60-1.40)
[2017-11-02 06:50] LABS: PHOSPHORUS 3.3 mg/dl (2.5-4.9)
[2017-11-02 07:44] LABS: HEMOGLOBIN A1C 4.8 % (4.5-5.6)
--- NOTE | 2017-11-02 07:47 | DIAGNOSTIC IMAGING REPORT ---
CHEST ONE VIEW PORTABLE CLINICAL HISTORY: 82 years-old Male presenting with sob. TECHNIQUE: Portable upright AP view of the chest was obtained. COMPARISON: 11/01/2017. FINDINGS: Left subclavian pacer with leads to the right determined right ventricular apex unchanged. Left internal jugular central venous catheter terminates in the upper SVC, unchanged. Multiple overlying external leads project over the upper abdomen. Atherosclerosis of aortic arch. Cardiac silhouette moderately enlarged, unchanged. Pulmonary vascular prominence unchanged. Mildly low lung volumes with minimal bibasilar opacities and small bilateral pleural effusions as on prior exam. No new focal infiltrate. No pneumothorax. Extensive chronic posttraumatic and/or degenerative change of the bilateral glenohumeral joints with superior subluxation of the bilateral humeral heads, chronic and likely indicating chronic rotator cuff tears. Upper abdomen normal. IMPRESSION: 1. Mildly low lung volumes with bibasilar atelectasis and small pleural effusions not significant changed from prior. 2. Cardiomegaly and pulmonary vascular prominence may indicate volume overload though no marquis evidence of pulmonary edema. Electronically signed by: Mark Moffett M.D. 11/02/2017 7:46 AM Dictated Date/Time: 11/02/2017 7:43 AM
--- NOTE | 2017-11-02 08:20 | ECHOCARDIOGRAM REPORT ---
*NOTICE TO RECEIVING [employer] This information is strictly Confidential and protected under [place] law. [place] law prohibits you from making any further disclosure of this information unless further disclosure is expressly permitted by the written consent of the person to whom it pertains or is authorized by law. A general authorization for the release of medical or other information is not sufficient for this purpose. Hospital accepts no responsibility if the information is made available to any other person, INCLUDING THE PATIENT. Interpretation Summary * Name: MCKENZIE HER Study Date: 11/01/2017 01:10 PM * Patient Location: [facility] [place]\S\E104\S\1 * : 1935 (M/d/yyyy) Gender: Male Height: 74 in * Age: 82 yrs Ethnicity: [place] Weight: 222 lb * Ordering Physician: Franky Alan * Referring Physician: No Doctor, Assigned * Performed By: Kelvin Garrett RDCS * * Reason For Study: A-fib * BSA: 2.3 m2 * -- Conclusions -- * There is borderline concentric left ventricular hypertrophy. * Left ventricular systolic function is moderately reduced. * The right ventricle is severely dilated. * The right ventricular systolic function is moderately reduced. * The left atrium is severely dilated. * The right atrium is severely dilated. * Mild aortic regurgitation. * Mild valvular aortic stenosis. * There is mild mitral regurgitation. * The inferior vena cava is severely dilated. * Right ventricular systolic pressure is elevated at 40-50mmHg. Procedure Details * A complete two-dimensional transthoracic echocardiogram was performed (2D, M-mode, Doppler and color flow Doppler). * The study was technically difficult, but visualization was adequate with the administration of Definity ultrasound contrast. * A contrast injection of Definity was performed to improve assessment of LV function. * Contrast was injected into an intravenous site in the left arm. * One vial of Definity ultrasound contrast was diluted in normal saline to a total volume of 10 ml. A total of '2' ml of solution was administered during imaging. * Lot # [id number] of Definity utilized for procedure. * Expiration date . * The attending nurse who injected the contrast agent was ANEL Gallegos. Left Ventricle * The left ventricle is normal in size. * There is borderline concentric left ventricular hypertrophy. * Ejection Fraction = 30-35%. * Left ventricular systolic function is moderately reduced. * The septum is dyskinetic. Posterior wall function appears normal. The remaining distributions are severely hypokinetic Right Ventricle * The right ventricle is severely dilated. * The right ventricular systolic function is moderately reduced. Atria * The left atrium is severely dilated. * The right atrium is severely dilated. * There is a catheter/pacemaker lead seen in the right atrium. Mitral Valve * The mitral valve is grossly normal. * There is mild mitral regurgitation. Tricuspid Valve * The tricuspid valve is not well visualized, but is grossly normal. * There is mild tricuspid regurgitation. * Right ventricular systolic pressure is elevated at 40-50mmHg. Aortic Valve * The right coronary cusp was severely calcified and poorly mobile * Mild valvular aortic stenosis. * Mild aortic regurgitation. Pulmonic Valve * At least moderate regurgitation is suspected Great Vessels * The aortic root is normal size. Pericardium/Pleural * There is no pericardial effusion. Great Vessels * The inferior vena cava is severely dilated. MMode 2D Measurements and Calculations IVSd 1.2 cm IVSs 1.2 cm LVIDd 5.0 cm LVIDs 4.3 cm LVPWd 1.2 cm LVPWs 1.5 cm IVS/LVPW 1.0 FS 15.1 % EDV(Teich) 120.3 ml ESV(Teich) 81.9 ml EF(Teich) 31.9 % EDV(cubed) 127.8 ml ESV(cubed) 78.1 ml EF(cubed) 38.9 % % IVS thick -1.72 % % LVPW thick 23.7 % LV mass(C)d 243.5 grams LV mass(C)dI 107.2 grams/m\S\2 LV mass(C)s 219.5 grams LV mass(C)sI 96.6 grams/m\S\2 SV(Teich) 38.4 ml SI(Teich) 16.9 ml/m\S\2 SV(cubed) 49.7 ml SI(cubed) 21.9 ml/m\S\2 EPSS 0.95 cm Ao root diam 3.4 cm Ao root area 9.3 cm\S\2 ACS 0.74 cm LA dimension 5.2 cm LA/Ao 1.5 LVOT diam 2.1 cm LVOT area 3.5 cm\S\2 LVAd ap4 32.6 cm\S\2 LVLd ap4 7.8 cm EDV(MOD-sp4) 115.9 ml EDV(sp4-el) 116.1 ml LVAs ap4 26.6 cm\S\2 LVLs ap4 8.3 cm ESV(MOD-sp4) 68.5 ml ESV(sp4-el) 71.9 ml EF(MOD-sp4) 40.9 % EF(sp4-el) 38.1 % LVAd ap2 32.3 cm\S\2 LVLd ap2 7.4 cm EDV(MOD-sp2) 117.0 ml EDV(sp2-el) 119.2 ml LVAs ap2 24.7 cm\S\2 LVLs ap2 7.3 cm ESV(MOD-sp2) 72.0 ml ESV(sp2-el) 71.2 ml EF(MOD-sp2) 38.5 % EF(sp2-el) 40.3 % LVLd %diff -4.67 % EDV(MOD-bp) 115.8 ml LVLs %diff -14.73 % ESV(MOD-bp) 73.9 ml EF(MOD-bp) 36.1 % SV(MOD-sp4) 47.4 ml SI(MOD-sp4) 20.9 ml/m\S\2 SV(MOD-sp2) 45.1 ml SI(MOD-sp2) 19.8 ml/m\S\2 SV(MOD-bp) 41.8 ml SI(MOD-bp) 18.4 ml/m\S\2 SV(sp4-el) 44.2 ml SI(sp4-el) 19.5 ml/m\S\2 SV(sp2-el) 48.0 ml SI(sp2-el) 21.1 ml/m\S\2 Doppler Measurements and Calculations MV E max evans 94.2 cm/sec MV dec time 0.15 sec Ao V2 max 224.4 cm/sec Ao max PG 20.3 mmHg Ao max PG (full) 17.9 mmHg Ao V2 mean 138.7 cm/sec Ao mean PG 9.4 mmHg Ao mean PG (full) 8.2 mmHg Ao V2 VTI 36.5 cm SHABBIR(I,A) 1.1 cm\S\2 SHABBIR(I,D) 1.1 cm\S\2 SHABBIR(V,A) 1.2 cm\S\2 SHABBIR(V,D) 1.2 cm\S\2 LV V1 max PG 2.3 mmHg LV V1 mean PG 1.2 mmHg LV V1 max 76.1 cm/sec LV V1 mean 49.7 cm/sec LV V1 VTI 11.8 cm SV(Ao) 337.7 ml SI(Ao) 148.7 ml/m\S\2 SV(LVOT) 41.0 ml SI(LVOT) 18.0 ml/m\S\2 PA V2 max 92.9 cm/sec PA max PG 3.5 mmHg PA acc slope 656.6 cm/sec\S\2 PA acc time 0.09 sec PI end-d evans 194.2 cm/sec TR max evans 279.3 cm/sec PA pr(Accel) 39.9 mmHg
[2017-11-02] MEDS ORDERED: PHENYLEPHRINE HCL IV PRN (08:45)
[2017-11-02] MEDS ORDERED: DEXTROSE 5% IV PRN (08:45)
[2017-11-02] MEDS: AMIODARONE 200 MG TAB PO SCH (08:56)
[2017-11-02] MEDS: ALLOPURINOL 100 MG TAB PO SCH (08:56)
[2017-11-02] MEDS: PANTOprazole INJ 40 MG in SYRINGE 0 ML IV SCH (08:56)
[2017-11-02] MEDS: MAGNESIUM OXIDE 400 MG TAB PO SCH (08:56)
[2017-11-02] MEDS: MIDODRINE 10 MG TAB PO SCH ×3 (08:56→17:00)
[2017-11-02] MEDS: NEPHROCAPS PO SCH (08:56)
[2017-11-02] MEDS: TRIAMCINOLONE ACET 0.1% OINT 15 GM TUBE EXT SCH (08:57)
--- NOTE | 2017-11-02 10:45 | Clinical Documentation Query ---
CLINICAL DOCUMENTATION QUERY Dr. SIMPSON, In your clinical opinion is this patient being managed for: (x ) Acute systolic CHF ( ) Not Agree ( ) Other explanation of clinical findings (Please Explain) ( ) Unable to determine (Please Define) ( ) Need to Discuss The medical record reflects the following clinical findings, treatment, and risk factors. Clinical Indicators: 82 yo male presenting with increasing dyspnea transferred from outside facility. CXR with evidence of pulm vasc congestion, bilat effusions. Pt required an additional dialysis session outpatient prior to presentation. BNP > 84434, ECHO with EF 30-35% Treatment: nephrology consult, ICU monitoring, O2 support, ECHO , IV levophed, continue dialysis routine Risk Factors: hx CHF, possible pneumonia, fluid overload, HTN, ESRD Please clarify and document your clinical opinion in the progress notes and discharge summary. Terms such as "probable", "suspected", "likely", "questionable", "possible", or "still to be ruled out" are acceptable. IF IN AGREEMENT, YOU MUST DOCUMENT ABOVE DIAGNOSTIC STATEMENT IN DAILY PROGRESS NOTES AND DISCHARGE SUMMARY. This document is not part of the patient's record. Thank You, Jess Kwong, RN [phone]
--- NOTE | 2017-11-02 10:58 | Palliative Care Consultation ---
Consultation Date of Consultation: Nov 02, 2017. Requesting Physician: Renetta Aldridge PA-C Attending Physician: Dr. Lizama Reason for Consultation: Goals of care History of Present Illness This 82 year old male patient with PMH ESRD on HD, CHF, Afib on Coumadin, and others listed below, presented to [facility] as a direct admit from [facility] due to need for dialysis. He presented to [facility] with hypotension, volume overload , and CHF. It is my understanding that [facility] has no licensed reactor operator, so patient as transferred here. Mr. Boles is in our ICU, on can-synephrine to maintain blood pressure. Unable to tolerate a dialysis treatment today due to hypotension and wide-complex ventricular tachycardia. Lactic acid 2.9 upon admission, as well as WBC 11.45. No fever, however. He remains on IV abx until blood cultures result. CXR shows pulmonary vascular congestion, cardiomegaly, and bilateral pleural effusions. Patient has living will and POLST form which both state that patient wants to be made comfortable at this point. However, patient has been undecided although he is alluding to the fact that he wants to stop aggressive treatment. Palliative care is consulted. I met with patient along with Delano Aldridge, boiling off winder CAIN, in room 104. Patient is awake, alert and oriented. He is in no apparent distress and denies c /o pain at this time. We had a lengthy discussion about goals of care. Patient is having some spiritual doubts and concerns which Luis Carlos did address with him. Patient states that he wants to speak with his vacuum cleaner repairer and his , Marii, before making any decision on transitioning to comfort measures only. Myself and Luis Carlos spoke with patient's , Marii. I spoke with patient's vacuum cleaner repairer, Pastor Enrique ([phone]), with patient's permission. Patient then spoke with Marii and Pastor Enrique on the phone. is planning to come to hospital. I also called patient's daughter, Pooja Barron, on phone. She is out of town but plans on coming this afternoon/evening as soon as she is able. Pooja and patient's Marii both agree with comfort measures only and stopping all treatment including dialysis if that is what the patient wants. See plan below. Past Medical/Surgical History Medical History: Sick sinus syndrome Pneumonia Dyspnea Hypotension End-stage renal disease on HD Pulmonary edema Obstructive sleep apnea syndrome Diabetes mellitus type 2 Gout Hypothyroidism GERD Osteoarthritis of the knee MRSA CHF Chronic wounds of the lower extremities Atrial fibrillation Hypertension HLD Surgical History: PPM placement Social History Smoking Status: Never Smoker History of Alcohol Use: No Drug Use: none Marital Status: Occupation Status: retired Review of Systems Constitutional: + weakness ENT: + trouble swallowing Respiratory: + cough, + sputum, No shortness of breath Cardiac: No chest pain, No edema Abdomen: No pain, No nausea, No vomiting Male : No problem reported Psychiatric: + problem reported (spiritual concerns regarding stopping aggressive treatment), No depression symptoms, No anxiety Allergies Coded Allergies: Clonidine (Unverified Allergy, Unknown, Unknown, 11/01/17) Erythromycin (Unverified Allergy, Unknown, Unknown, 11/01/17) Glyburide (Unverified Allergy, Unknown, Unknown, 11/01/17) Metolazone (Unverified Allergy, Unknown, Unknown, 11/01/17) Olmesartan (Unverified Allergy, Unknown, unkown, 11/01/17) Simvastatin (Unverified Allergy, Unknown, Unknown, 11/01/17) Medications Current Inpatient Medications Medications (Trade) Dose Ordered Sig/Monica Route Start Time Stop Time Status Last Admin Dose Admin Pantoprazole Sodium 40 mg/ Syringe 10 ml @ 5 mls/min DAILY IV 11/01/17 09:00 12/01/17 08:59 11/02/17 08:56 5 MLS/MIN Levalbuterol (Xopenex 1.25MG/ 0.5ML Neb) 1.25 mg Q6R INH 11/01/17 09:00 12/01/17 08:59 11/02/17 07:42 1.25 MG Ipratropium [place] (Atrovent 0.02% 0.5MG/2.5ML Neb) 0.5 mg Q6R INH 11/01/17 09:00 12/01/17 08:59 11/02/17 07:42 0.5 MG Miscellaneous Information (Icu Protocol For Hyperglycemia) 1 ea PRN PRN N/A 11/01/17 05:15 11/03/17 05:14 Acetaminophen (Tylenol Tab) 650 mg Q4H PRN PO 11/01/17 05:45 12/01/17 05:44 Allopurinol (Zyloprim Tab) 100 mg QAM PO 11/01/17 09:00 12/01/17 08:59 11/02/17 08:56 100 MG Amiodarone HCl (Cordarone Tab) 200 mg QAM PO 11/01/17 09:00 12/01/17 08:59 11/02/17 08:56 200 MG Atorvastatin Calcium (Lipitor Tab) 20 mg HS PO 11/01/17 21:00 12/01/17 20:59 Benzonatate (Tessalon Perles Cap) 100 mg TID PRN PO 11/01/17 05:45 12/01/17 05:44 Bisacodyl (Dulcolax Tab) 5 mg BID PRN PO 11/01/17 05:45 12/01/17 05:44 Docusate Sodium (coLACE SYRUP) 50 mg BID PRN PO 11/01/17 05:45 12/01/17 05:44 Senna/Docusate Sodium (Senokot S Tab) 2 tab HS PO 11/01/17 21:00 12/01/17 20:59 Levothyroxine Sodium (Synthroid Tab) 112 mcg DAILYBB PO 11/01/17 06:00 12/01/17 05:59 Magnesium Oxide (Mag-Ox Tab) 400 mg QAM PO 11/01/17 09:00 12/01/17 08:59 11/02/17 08:56 400 MG Midodrine (Proamatine Tab) 20 mg DAILY PRN PO 11/01/17 05:45 12/01/17 05:44 Midodrine (Proamatine Tab) 10 mg TID@08,12,17 PO 11/01/17 08:00 12/01/17 07:59 11/02/17 08:56 10 MG Vitamin B Complex/ Vit C/Folic Acid (Nephrocaps) 1 cap DAILY PO 11/01/17 09:00 12/01/17 08:59 11/02/17 08:56 1 CAP Nystatin (Mycostatin Powder) 1 appln TID PRN EXT 11/01/17 05:45 12/01/17 05:44 Oxycodone HCl (Roxicodone Immediate Rel Tab) 2.5 mg Q12H PRN PO 11/01/17 05:45 11/15/17 05:44 Polyethylene (Miralax Powder Packet) 17 gm QPM PO 11/01/17 21:00 12/01/17 20:59 Triamcinolone Acetonide (Kenalog 0.1% Oint) 1 appln BID EXT 11/01/17 09:00 12/01/17 08:59 11/02/17 08:57 1 APPLN Warfarin Sodium (Coumadin Tab) 2 mg DAILY@1600 PO 11/01/17 16:00 12/01/17 15:59 Ondansetron HCl (Zofran Odt) 8 mg Q8H PRN PO 11/01/17 05:45 12/01/17 05:44 Hydromorphone HCl (Dilaudid Inj) 0.25 mg Q4H PRN IV 11/01/17 12:30 11/15/17 12:29 11/01/17 23:46 0.25 MG Heparin Sodium (Porcine) (Heparin 10 Unit/ ml 5 ml Flush) 5 ml PRN PRN FLUSH 11/02/17 00:45 12/02/17 00:44 Ceftriaxone Sodium 2000 mg/ Dextrose 70 ml @ 140 mls/hr UD IV 11/02/17 18:00 11/09/17 17:59 Phenylephrine HCl 40 mg/Dextrose 254 ml @ 0 mls/hr Q0M PRN IV 11/02/17 08:45 12/02/17 08:44 Physical Exam Date Time Temp Pulse Resp B/P (MAP) Pulse Ox O2 Delivery O2 Flow Rate FiO2 11/02/17 07:42 110 20 96 Nasal Cannula 4.0 11/02/17 05:05 112 29 83/57 (66) 89 Nasal Cannula 4.0 11/02/17 04:30 110 19 87/53 (64) 89 Nasal Cannula 4.0 11/02/17 04:04 Nasal Cannula 2.0 11/02/17 04:01 110 19 86/52 (63) 89 Nasal Cannula 4.0 11/02/17 03:00 109 17 89/57 (68) 98 Nasal Cannula 4.0 11/02/17 02:30 109 15 90/57 (68) 98 Nasal Cannula 4.0 11/02/17 02:00 36.7 110 17 85/57 (66) 98 Nasal Cannula 4.0 11/02/17 01:49 110 20 95 Nasal Cannula 4.0 11/02/17 01:30 111 21 104/60 (75) 94 Nasal Cannula 4.0 11/02/17 01:00 110 18 88/62 (71) 88 Nasal Cannula 4.0 11/02/17 00:30 112 22 87/61 (70) 90 Nasal Cannula 4.0 11/02/17 00:25 Nasal Cannula 2.0 11/02/17 00:00 110 16 91/59 (70) 90 Nasal Cannula 4.0 11/01/17 23:30 112 25 98/67 (77) 94 Nasal Cannula 4.0 11/01/17 23:00 111 18 86/63 (71) 91 Nasal Cannula 4.0 11/01/17 22:01 36.7 112 24 96/53 (67) 98 Nasal Cannula 4.0 11/01/17 21:31 111 24 102/84 (90) 96 Nasal Cannula 4.0 11/01/17 21:00 110 16 85/60 (68) 95 Nasal Cannula 4.0 11/01/17 20:17 110 18 98 Nasal Cannula 4.0 11/01/17 20:05 Nasal Cannula 2.0 11/01/17 20:00 36.7 109 17 102/66 (78) 99 Nasal Cannula 4.0 11/01/17 19:30 108 15 86/64 (71) 98 Nasal Cannula 4.0 11/01/17 19:00 108 16 92/67 (75) 95 Nasal Cannula 4.0 11/01/17 18:00 108 19 92/63 (73) 95 Nasal Cannula 4.0 11/01/17 17:30 109 16 87/58 (68) 94 Nasal Cannula 4.0 11/01/17 17:22 109 20 76/52 (60) 87 Nasal Cannula 2.0 11/01/17 17:12 109 19 76/58 (64) 85 Nasal Cannula 2.0 11/01/17 17:10 110 17 79/57 (64) 86 Nasal Cannula 2.0 11/01/17 17:01 110 21 72/54 (60) 89 Nasal Cannula 2.0 11/01/17 16:00 Nasal Cannula 2.0 11/01/17 16:00 36.6 109 24 90/62 (71) 94 Nasal Cannula 2.0 11/01/17 15:00 107 19 93/61 (72) 96 Nasal Cannula 2.0 11/01/17 14:28 107 18 97 Nasal Cannula 2.0 11/01/17 14:00 108 19 85/57 (66) 98 Nasal Cannula 2.0 11/01/17 13:00 110 20 86/56 (66) 97 11/01/17 12:00 Nasal Cannula 2.0 11/01/17 12:00 113 26 111/69 (83) 100 11/01/17 11:01 140 19 112/58 (76) 96 General Appearance: no apparent distress, + pertinent finding (chronically ill and frail appearing) ENT: hearing grossly normal Neck: supple, no JVD Respiratory: no respiratory distress, no accessory muscle use, + decreased breath sounds, + pertinent finding (moist cough) Cardiovascular: + tachycardia (but regular), + normal peripheral pulses (+2 ), + pertinent finding (weak pedal pulses) Abdomen: normal bowel sounds, non tender, soft Neurologic/Psychiatric: alert, normal mood/affect, oriented x 3 Skin: + pertinent finding (multiple skin wounds/tears. Ecchymosis all over body. BL feet purple, peeling skin, ) Laboratory Results Last 24 Hours Test 11/01/17 12:44 11/01/17 15:09 11/01/17 18:28 11/01/17 21:03 Bedside Glucose 111 mg/dl Total Creatine Kinase 9 U/L 9 U/L Creatine Kinase MB 3.0 ng/ml 2.9 ng/ml Creatine Kinase MB Ratio 33.3 32.2 Troponin I 0.099 ng/ml 0.093 ng/ml Bedside Glucose (other) 110 mg/dl Test 11/02/17 00:15 11/02/17 05:24 11/02/17 05:31 11/02/17 08:53 Bedside Glucose (other) 120 mg/dl 102 mg/dl White Blood Count 9.99 K/uL Red Blood Count 3.27 M/uL Hemoglobin 12.4 g/dL Hematocrit 39.1 % Mean Corpuscular Volume 119.6 fL Mean Corpuscular Hemoglobin 37.9 pg Mean Corpuscular Hemoglobin Concent 31.7 g/dl Platelet Count 109 K/uL Mean Platelet Volume 10.0 fL Neutrophils (%) (Auto) 87.6 % Lymphocytes (%) (Auto) 4.6 % Monocytes (%) (Auto) 7.2 % Eosinophils (%) (Auto) 0.1 % Basophils (%) (Auto) 0.1 % Neutrophils # (Auto) 8.75 K/uL Lymphocytes # (Auto) 0.46 K/uL Monocytes # (Auto) 0.72 K/uL Eosinophils # (Auto) 0.01 K/uL Basophils # (Auto) 0.01 K/uL RDW Standard Deviation 92.4 fL RDW Coefficient of Variation 21.1 % Immature Granulocyte % (Auto) 0.4 % Immature Granulocyte # (Auto) 0.04 K/uL Nucleated RBC Absolute Count (auto) 0.21 K/uL Nucleated Red Blood Cells % 2.1 % Anisocytosis PRESENT Macrocytosis PRESENT Spherocytes OCCASIONAL Prothrombin Time 18.7 SECONDS Prothromb Time International Ratio 1.8 Activated Partial Thromboplast Time 46.7 SECONDS Partial Thromboplastin Ratio 1.8 Sodium Level 135 mmol/L Potassium Level 5.0 mmol/L Chloride Level 102 mmol/L Carbon Dioxide Level 26 mmol/L Anion Gap 7.0 mmol/L Blood Urea Nitrogen 65 mg/dl Creatinine 4.24 mg/dl Est Creatinine Clear Calc Drug Dose 16.8 ml/min Estimated GFR () 14.2 Estimated GFR (Non- 12.3 BUN/Creatinine Ratio 15.4 Random Glucose 101 mg/dl Estimated Average Glucose 91 mg/dl Hemoglobin A1c 4.8 % Calcium Level 8.5 mg/dl Phosphorus Level 3.3 mg/dl Magnesium Level 2.4 mg/dl Total Bilirubin 1.4 mg/dl Direct Bilirubin 0.8 mg/dl Aspartate Amino Transf (AST/SGOT) 30 U/L Alanine Aminotransferase (ALT/SGPT) 28 U/L Alkaline Phosphatase 107 U/L Total Protein 6.0 gm/dl Albumin 2.3 gm/dl Thyroid Stimulating Hormone (TSH) 2.500 uIu/ml Random Vancomycin Level 30.6 mcg/ml Random Cortisol 42.18 mcg/dl Test 11/02/17 09:25 Assessment & Plan Problem list: Hypotension Volume overload ESRD on HD Dysphagia/aspiration risk Wide complex tachycardia Hx afib, SSS s/p PPM Elevated troponin Multiple skin issues- ?right leg cellulitis, skin tears/wounds Goals of care Palliative care recs: discussed with patient, ICU team, Marii, daughter Pooja. -Patient is DO NOT RESUSCITATE -At this time, patient's decision is no escalation in care. Remains on can- synephrine for blood pressure control. Cannot have dialysis at this time. His family and vacuum cleaner repairer are coming in to talk with patient. He is considering transitioning to comfort measures only and stopping dialysis/all aggressive treatment. Continue current medical management for now, but again, no escalation in care. -Wound care is consulted. -Speech saw patient- essentially no swallowing function. If patient/family wish to comfort feed and allow aspiration, could try pureed diet. -Of note, patient has living will and POLST form which both indicate wanting to be made comfortable at this point. Both are on chart. -Further goals/recommendations to be determined based on patient's wishes. Thank you kindly for this consult. I will follow as needed.
--- NOTE | 2017-11-02 12:12 | Nephrology Progress Note ---
Nephrology Progress Note Date of Service Nov 02, 2017. Chief Complaint ESRD Subjective Mr. Boles was seen and evaluated in his hospital room this morning. Plan of care was discussed with the ICU team. Plan of care discussed with the dialysis nurse as well as nursing staff in the dialysis unit in [place]. Medical records from [facility] were reviewed. Reji felt well this morning with some mild dyspnea at rest. He denied chest pain or palpitations. He recalled tolerating hemodialysis well. He expressed frustration with recent decline in health. He was waiting to discuss his overall plan of care with his and outboard motorboat rigger. Hemodynamically, Reji was tachycardic and hypotensive. Heart rate was 110-120. BP low on phenylephrine gtt with a SBP of 70 mmHg. Review of Systems A complete review of systems was performed. Pertinent positives are noted above. All other systems are negative. Vital Signs Last 8 Hrs Date Time Temp Pulse Resp B/P (MAP) Pulse Ox O2 Delivery O2 Flow Rate FiO2 11/02/17 11:00 105 26 85/60 (68) 90 11/02/17 10:00 122 28 93/58 (70) 97 Nasal Cannula 4.0 11/02/17 09:33 110 73/48 11/02/17 08:00 93 Nasal Cannula 4.0 11/02/17 08:00 36.9 117 22 80/53 (62) 87 Nasal Cannula 4.0 11/02/17 07:42 110 20 96 Nasal Cannula 4.0 11/02/17 05:05 112 29 83/57 (66) 89 Nasal Cannula 4.0 11/02/17 04:30 110 19 87/53 (64) 89 Nasal Cannula 4.0 11/02/17 04:04 Nasal Cannula 2.0 11/02/17 04:01 110 19 86/52 (63) 89 Nasal Cannula 4.0 Last Recorded Weight Weight (Kilograms): 101.000 Physical Exam General Appearance: no apparent distress, + thin, + pertinent finding (frail) Head: normocephalic, atraumatic Eyes: normal inspection, sclerae normal ENT: normal ENT inspection, pharynx normal Neck: supple, + JVD Respiratory/Chest: + decreased breath sounds, + rales (few scattered) Cardiovascular: no gallop, + tachycardia Abdomen/GI: non tender, soft Extremities/Musculoskelatal: + pedal edema, + pertinent finding (distal cyanosis) Neurologic/Psych: alert, + depressed affect Social History Smokeless Tobacco Use: No Alcohol Use: none Drug Use: none Marital Status: Occupation: retired Laboratory Results Past 24 Hours 11/02/17 05:24 Red Blood Count 3.27, Mean Corpuscular Volume 119.6, Mean Corpuscular Hemoglobin 37.9, Mean Corpuscular Hemoglobin Concent 31.7, Mean Platelet Volume 10.0, Neutrophils (%) (Auto) 87.6, Lymphocytes (%) (Auto) 4.6, Monocytes (%) ( Auto) 7.2, Eosinophils (%) (Auto) 0.1, Basophils (%) (Auto) 0.1, Neutrophils # ( Auto) 8.75, Lymphocytes # (Auto) 0.46, Monocytes # (Auto) 0.72, Eosinophils # ( Auto) 0.01, Basophils # (Auto) 0.01 11/02/17 05:24 Test 11/01/17 12:44 11/01/17 15:09 11/01/17 18:28 11/01/17 21:03 Bedside Glucose 111 mg/dl (70-99) Total Creatine Kinase 9 U/L (39-308) 9 U/L (39-308) Creatine Kinase MB 3.0 ng/ml (0.5-3.6) 2.9 ng/ml (0.5-3.6) Creatine Kinase MB Ratio 33.3 (0-3.0) 32.2 (0-3.0) Troponin I 0.099 ng/ml (0-0.045) 0.093 ng/ml (0-0.045) Bedside Glucose (other) 110 mg/dl (70-99) Test 11/02/17 00:15 11/02/17 05:24 11/02/17 05:31 11/02/17 08:53 Bedside Glucose (other) 120 mg/dl (70-99) 102 mg/dl (70-99) White Blood Count 9.99 K/uL (4.8-10.8) Red Blood Count 3.27 M/uL (4.7-6.1) Hemoglobin 12.4 g/dL (14.0-18.0) Hematocrit 39.1 % (42-52) Mean Corpuscular Volume 119.6 fL (80-100) Mean Corpuscular Hemoglobin 37.9 pg (25-34) Mean Corpuscular Hemoglobin Concent 31.7 g/dl (32-36) Platelet Count 109 K/uL (130-400) Mean Platelet Volume 10.0 fL (7.4-10.4) Neutrophils (%) (Auto) 87.6 % Lymphocytes (%) (Auto) 4.6 % Monocytes (%) (Auto) 7.2 % Eosinophils (%) (Auto) 0.1 % Basophils (%) (Auto) 0.1 % Neutrophils # (Auto) 8.75 K/uL (1.4-6.5) Lymphocytes # (Auto) 0.46 K/uL (1.2-3.4) Monocytes # (Auto) 0.72 K/uL (0.11-0.59) Eosinophils # (Auto) 0.01 K/uL (0-0.5) Basophils # (Auto) 0.01 K/uL (0-0.2) RDW Standard Deviation 92.4 fL (36.4-46.3) RDW Coefficient of Variation 21.1 % (11.5-14.5) Immature Granulocyte % (Auto) 0.4 % Immature Granulocyte # (Auto) 0.04 K/uL (0.00-0.02) Nucleated RBC Absolute Count (auto) 0.21 K/uL (0-0) Nucleated Red Blood Cells % 2.1 % Anisocytosis PRESENT Macrocytosis PRESENT Spherocytes OCCASIONAL Prothrombin Time 18.7 SECONDS (9.0-12.0) Prothromb Time International Ratio 1.8 (0.9-1.1) Activated Partial Thromboplast Time 46.7 SECONDS (21.0-31.0) Partial Thromboplastin Ratio 1.8 Anion Gap 7.0 mmol/L (3-11) Est Creatinine Clear Calc Drug Dose 16.8 ml/min Estimated GFR () 14.2 Estimated GFR (Non- 12.3 BUN/Creatinine Ratio 15.4 (10-20) Estimated Average Glucose 91 mg/dl Hemoglobin A1c 4.8 % (4.5-5.6) Calcium Level 8.5 mg/dl (8.5-10.1) Phosphorus Level 3.3 mg/dl (2.5-4.9) Magnesium Level 2.4 mg/dl (1.8-2.4) Total Bilirubin 1.4 mg/dl (0.2-1) Direct Bilirubin 0.8 mg/dl (0-0.2) Aspartate Amino Transf (AST/SGOT) 30 U/L (15-37) Alanine Aminotransferase (ALT/SGPT) 28 U/L (12-78) Alkaline Phosphatase 107 U/L (45-117) Total Protein 6.0 gm/dl (6.4-8.2) Albumin 2.3 gm/dl (3.4-5.0) Thyroid Stimulating Hormone (TSH) 2.500 uIu/ml (0.300-4.500) Random Vancomycin Level 30.6 mcg/ml Random Cortisol 42.18 mcg/dl Test 11/02/17 09:25 Hepatitis B Surface Antigen NEG (NEG) Hepatitis B Surface Antibody NEG Allergies Coded Allergies: Clonidine (Unverified Allergy, Unknown, Unknown, 11/01/17) Erythromycin (Unverified Allergy, Unknown, Unknown, 11/01/17) Glyburide (Unverified Allergy, Unknown, Unknown, 11/01/17) Metolazone (Unverified Allergy, Unknown, Unknown, 11/01/17) Olmesartan (Unverified Allergy, Unknown, unkown, 11/01/17) Simvastatin (Unverified Allergy, Unknown, Unknown, 11/01/17) Medications Current Inpatient Medications Medications (Trade) Dose Ordered Sig/Monica Route Start Time Stop Time Status Last Admin Dose Admin Pantoprazole Sodium 40 mg/ Syringe 10 ml @ 5 mls/min DAILY IV 11/01/17 09:00 12/01/17 08:59 11/02/17 08:56 5 MLS/MIN Levalbuterol (Xopenex 1.25MG/ 0.5ML Neb) 1.25 mg Q6R INH 11/01/17 09:00 12/01/17 08:59 11/02/17 07:42 1.25 MG Ipratropium [place] (Atrovent 0.02% 0.5MG/2.5ML Neb) 0.5 mg Q6R INH 11/01/17 09:00 12/01/17 08:59 11/02/17 07:42 0.5 MG Miscellaneous Information (Icu Protocol For Hyperglycemia) 1 ea PRN PRN N/A 11/01/17 05:15 11/03/17 05:14 Acetaminophen (Tylenol Tab) 650 mg Q4H PRN PO 11/01/17 05:45 12/01/17 05:44 Allopurinol (Zyloprim Tab) 100 mg QAM PO 11/01/17 09:00 12/01/17 08:59 11/02/17 08:56 100 MG Amiodarone HCl (Cordarone Tab) 200 mg QAM PO 11/01/17 09:00 12/01/17 08:59 11/02/17 08:56 200 MG Atorvastatin Calcium (Lipitor Tab) 20 mg HS PO 11/01/17 21:00 12/01/17 20:59 Benzonatate (Tessalon Perles Cap) 100 mg TID PRN PO 11/01/17 05:45 12/01/17 05:44 Bisacodyl (Dulcolax Tab) 5 mg BID PRN PO 11/01/17 05:45 12/01/17 05:44 Docusate Sodium (coLACE SYRUP) 50 mg BID PRN PO 11/01/17 05:45 12/01/17 05:44 Senna/Docusate Sodium (Senokot S Tab) 2 tab HS PO 11/01/17 21:00 12/01/17 20:59 Levothyroxine Sodium (Synthroid Tab) 112 mcg DAILYBB PO 11/01/17 06:00 12/01/17 05:59 Magnesium Oxide (Mag-Ox Tab) 400 mg QAM PO 11/01/17 09:00 12/01/17 08:59 11/02/17 08:56 400 MG Midodrine (Proamatine Tab) 20 mg DAILY PRN PO 11/01/17 05:45 12/01/17 05:44 Midodrine (Proamatine Tab) 10 mg TID@08,12,17 PO 11/01/17 08:00 12/01/17 07:59 11/02/17 08:56 10 MG Vitamin B Complex/ Vit C/Folic Acid (Nephrocaps) 1 cap DAILY PO 11/01/17 09:00 12/01/17 08:59 11/02/17 08:56 1 CAP Nystatin (Mycostatin Powder) 1 appln TID PRN EXT 11/01/17 05:45 12/01/17 05:44 Oxycodone HCl (Roxicodone Immediate Rel Tab) 2.5 mg Q12H PRN PO 11/01/17 05:45 11/15/17 05:44 Polyethylene (Miralax Powder Packet) 17 gm QPM PO 11/01/17 21:00 12/01/17 20:59 Triamcinolone Acetonide (Kenalog 0.1% Oint) 1 appln BID EXT 11/01/17 09:00 12/01/17 08:59 11/02/17 08:57 1 APPLN Warfarin Sodium (Coumadin Tab) 2 mg DAILY@1600 PO 11/01/17 16:00 12/01/17 15:59 Ondansetron HCl (Zofran Odt) 8 mg Q8H PRN PO 11/01/17 05:45 12/01/17 05:44 Hydromorphone HCl (Dilaudid Inj) 0.25 mg Q4H PRN IV 11/01/17 12:30 11/15/17 12:29 11/01/17 23:46 0.25 MG Heparin Sodium (Porcine) (Heparin 10 Unit/ ml 5 ml Flush) 5 ml PRN PRN FLUSH 11/02/17 00:45 12/02/17 00:44 Ceftriaxone Sodium 2000 mg/ Dextrose 70 ml @ 140 mls/hr UD IV 11/02/17 18:00 11/09/17 17:59 Phenylephrine HCl 40 mg/Dextrose 254 ml @ 0 mls/hr Q0M PRN IV 11/02/17 08:45 12/02/17 08:44 Impression (1) ESRD on hemodialysis (2) CHF (congestive heart failure) (3) Hypotension Mr. Reji Boles is a frail 82-year-old male with multiple comorbidities including end-stage renal disease on hemodialysis, autonomic dysfunction, chronic systolic CHF, requiring nasal cannula oxygen at home. Hemodialysis has been complicated by hypotension and inability to appropriately UF. There was some improvement on Thursday with sodium modeling. 2 L removed at that time. Reji has right heart failure. He has acute on chronic systolic CHF. He has been on hemodialysis Thursday, Thursday, Thursday at [place] dialysis unit via right brachiocephalic AV fistula. An extra treatment was scheduled for Thursday. The patient was admitted due to progressive heart failure. HD has been delayed pending discussion regarding goals of care and due to current hemodynamic instability. I had a long conversation with the patient and members of the care team. We discussed goals of therapy. Limitations of treatment were reviewed. If hemodynamics improve and patient is agreeable, we can try hemodialysis this afternoon but at this time opted to defer treatment. The patient is also waiting to speak to his and outboard motorboat rigger. Recommendations Additional recommendations pending follow up evaluation and discussion. Approximately 40 minutes of critical care time provided today.
[2017-11-02] MEDS: WARFARIN SOD 2 MG TAB PO SCH (16:00)
--- NOTE | 2017-11-02 16:08 | Critical Care Progress Note ---
Critical Care Progress Note Date of Service Nov 02, 2017. Attending Dr. Arleth Nava Is a pleasant 82-year-old male that presented from the [facility]. He was transferred here inasmuch is patient had hypotension and chronic dialysis from end-stage renal disease and the [facility] did not have a fruit i farmworker available to provide treatment plan for the patient. The patient has been receiving dialysis specifically over the last week with only 2 L being able to be transferred with hemodialysis. The patient has been undergoing dialysis three times weekly emergently for quite some time now. The patient does have an AV fistula which has been used. During routine interview with the patient it was identified that the patient had some doubts regarding his spiritual condition as well as appropriateness of continuing treatment of his physical condition. I had long discussion with him with Manuela Abdi present. The patient did request that his and hatch supervisor visit as he was considering withdrawal of care. Mrs. Abdi contacted pastor Enrique and arrange for a clearly visitation. I also spoke with the patient's Marii who indicated that Mr. Boles had expressed to her last evening that he did not want to continue with any treatment. I did explain to Mr. Boles that we could treat his pain and keep him comfortable from her breathing perspective but did not need to be aggressive with dialysis or other intervention. The patient stated he had no pain or discomfort. He stated was hungry and thirsty. He was given water which he aspirated readily. The patient denies any fever or chills. He has no abdominal pain. He denies nausea or vomiting. He has no diarrhea. He has no other acute complaints Objective Vital Signs - as noted below Laboratory Data - as noted below Physical Exam: General - NAD Eyes - No icterus, gaze conjugate ENT - Mucosa moist, no lesions or candidiasis Neck - Supple, No JVD Lungs - No bronchospasm, rales, or rhonchi. Patient does have decreased breath sounds as well as cough after drinking or eating Heart - Regular, rate controlled Abdomen - Soft, NT, ND, BS present Extremities - No edema, pedal pulses intact. AV fistula has an appropriate bruit. Patient has ecchymosis and frail skin on exam Neuro - A&OX3 Assessment & Plan HYPOTENSION * Patient suffering from hypotension due to fluid overload and end-stage renal failure. * Hemodialysis has not been successful * At this point patient is discussing terminal care * Unable to tolerate fluids secondary to renal status * Currently patient is asymptomatic * Follow supportively pending further discussion with and hatch supervisor regarding palliative care/hospice care RENAL * No recent success with dialysis as patient is not able to tolerate fluid exchange * Patient discussing termination of dialysis treatments * Awaiting arrival of and hatch supervisor to discuss terminal care * Creatinine is 4.24 ELECTROLYTES * End-stage renal patient receiving hemodialysis three times weekly * Potassium 5.0 * Sodium 135 * Magnesium 2.4 * Calcium 8.5 * Nephrology consulted - patient most likely will terminate care ENDOCRINE * Diabetes mellitus type 2 * Hypothyroidism - continue levothyroxine CARDIOVASCULAR * Hypotension as listed above * Atrial fibrillation - anticoagulated with warfarin ID * Vanc/Zosyn/Levaquin - unclear infectious status - the escalate antibiotics - ceftriaxone only * Multiple wounds of lower extremities - continue ceftriaxone * Follow supportively IV ACCESS * AV fistula * PIV in place * Central line placed by Dr. Gonzales DVT PROPHYLAXIS * Coumadin for A. fib * TEDs/SCDs as tolerated CCT: 40 minutes including discussion with Dr. Yuen and JUSTEN Barajas Thank you for including us in the care of this patient. Please refer to Dr. Reinoso's addendum for further recommendations I have personally evaluated and examined this patient. I agree with assessment and plan of Renetta Aldridge PA-C. The patient has opted to undergo comfort measures. He no longer desires to undergo hemodialysis. We have stopped his vasoactive medications. We will focus on his comfort. He is stable for downgraded out of the ICU. Consults & Procedures Consultants: Nephrology - Dr. Yuen Palliative Care - JUSTEN Dent Procedures: Left 3L CVC placed 11/01/[address] Gonzales Data Medications: Current Inpatient Medications Medications (Trade) Dose Ordered Sig/Monica Route Start Time Stop Time Status Last Admin Dose Admin Pantoprazole Sodium 40 mg/ Syringe 10 ml @ 5 mls/min DAILY IV 11/01/17 09:00 12/01/17 08:59 11/02/17 08:56 5 MLS/MIN Levalbuterol (Xopenex 1.25MG/ 0.5ML Neb) 1.25 mg Q6R INH 11/01/17 09:00 12/01/17 08:59 1/29/18 07:42 1.25 MG Ipratropium [place] (Atrovent 0.02% 0.5MG/2.5ML Neb) 0.5 mg Q6R INH 11/01/17 09:00 12/01/17 08:59 11/02/17 07:42 0.5 MG Miscellaneous Information (Icu Protocol For Hyperglycemia) 1 ea PRN PRN N/A 11/01/17 05:15 11/03/17 05:14 Acetaminophen (Tylenol Tab) 650 mg Q4H PRN PO 11/01/17 05:45 12/01/17 05:44 Allopurinol (Zyloprim Tab) 100 mg QAM PO 11/01/17 09:00 12/01/17 08:59 11/02/17 08:56 100 MG Amiodarone HCl (Cordarone Tab) 200 mg QAM PO 11/01/17 09:00 12/01/17 08:59 11/02/17 08:56 200 MG Atorvastatin Calcium (Lipitor Tab) 20 mg HS PO 11/01/17 21:00 12/01/17 20:59 Benzonatate (Tessalon Perles Cap) 100 mg TID PRN PO 11/01/17 05:45 12/01/17 05:44 Bisacodyl (Dulcolax Tab) 5 mg BID PRN PO 11/01/17 05:45 12/01/17 05:44 Docusate Sodium (coLACE SYRUP) 50 mg BID PRN PO 11/01/17 05:45 12/01/17 05:44 Senna/Docusate Sodium (Senokot S Tab) 2 tab HS PO 11/01/17 21:00 12/01/17 20:59 Levothyroxine Sodium (Synthroid Tab) 112 mcg DAILYBB PO 11/01/17 06:00 12/01/17 05:59 Magnesium Oxide (Mag-Ox Tab) 400 mg QAM PO 11/01/17 09:00 12/01/17 08:59 11/02/17 08:56 400 MG Midodrine (Proamatine Tab) 20 mg DAILY PRN PO 11/01/17 05:45 12/01/17 05:44 Midodrine (Proamatine Tab) 10 mg TID@08,12,17 PO 11/01/17 08:00 12/01/17 07:59 11/02/17 08:56 10 MG Vitamin B Complex/ Vit C/Folic Acid (Nephrocaps) 1 cap DAILY PO 11/01/17 09:00 12/01/17 08:59 11/02/17 08:56 1 CAP Nystatin (Mycostatin Powder) 1 appln TID PRN EXT 11/01/17 05:45 12/01/17 05:44 Oxycodone HCl (Roxicodone Immediate Rel Tab) 2.5 mg Q12H PRN PO 11/01/17 05:45 11/15/17 05:44 Polyethylene (Miralax Powder Packet) 17 gm QPM PO 11/01/17 21:00 12/01/17 20:59 Triamcinolone Acetonide (Kenalog 0.1% Oint) 1 appln BID EXT 11/01/17 09:00 12/01/17 08:59 11/02/17 08:57 1 APPLN Warfarin Sodium (Coumadin Tab) 2 mg DAILY@1600 PO 11/01/17 16:00 12/01/17 15:59 Ondansetron HCl (Zofran Odt) 8 mg Q8H PRN PO 11/01/17 05:45 12/01/17 05:44 Hydromorphone HCl (Dilaudid Inj) 0.25 mg Q4H PRN IV 11/01/17 12:30 11/15/17 12:29 11/01/17 23:46 0.25 MG Heparin Sodium (Porcine) (Heparin 10 Unit/ ml 5 ml Flush) 5 ml PRN PRN FLUSH 11/02/17 00:45 12/02/17 00:44 Ceftriaxone Sodium 2000 mg/ Dextrose 70 ml @ 140 mls/hr UD IV 11/02/17 18:00 11/09/17 17:59 Phenylephrine HCl 40 mg/Dextrose 254 ml @ 0 mls/hr Q0M PRN IV 11/02/17 08:45 12/02/17 08:44 I & O: 24-Hour Column 11/03/17 07:59 Intake Total 167 ml Balance 167 ml Vital Signs: Date Time Temp Pulse Resp B/P (MAP) Pulse Ox O2 Delivery O2 Flow Rate FiO2 11/02/17 14:00 102 18 77/49 (58) 100 4.0 11/02/17 12:00 83 Nasal Cannula 4.0 11/02/17 11:00 105 26 85/60 (68) 90 11/02/17 10:00 122 28 93/58 (70) 97 Nasal Cannula 4.0 11/02/17 09:33 110 73/48 11/02/17 08:00 93 Nasal Cannula 4.0 11/02/17 08:00 Nasal Cannula 11/02/17 08:00 36.9 117 22 80/53 (62) 87 Nasal Cannula 4.0 11/02/17 07:42 110 20 96 Nasal Cannula 4.0 11/02/17 05:05 112 29 83/57 (66) 89 Nasal Cannula 4.0 11/02/17 04:30 110 19 87/53 (64) 89 Nasal Cannula 4.0 11/02/17 04:04 Nasal Cannula 2.0 11/02/17 04:01 110 19 86/52 (63) 89 Nasal Cannula 4.0 11/02/17 03:00 109 17 89/57 (68) 98 Nasal Cannula 4.0 11/02/17 02:30 109 15 90/57 (68) 98 Nasal Cannula 4.0 11/02/17 02:00 36.7 110 17 85/57 (66) 98 Nasal Cannula 4.0 11/02/17 01:49 110 20 95 Nasal Cannula 4.0 11/02/17 01:30 111 21 104/60 (75) 94 Nasal Cannula 4.0 11/02/17 01:00 110 18 88/62 (71) 88 Nasal Cannula 4.0 11/02/17 00:30 112 22 87/61 (70) 90 Nasal Cannula 4.0 11/02/17 00:25 Nasal Cannula 2.0 11/02/17 00:00 110 16 91/59 (70) 90 Nasal Cannula 4.0 11/01/17 23:30 112 25 98/67 (77) 94 Nasal Cannula 4.0 11/01/17 23:00 111 18 86/63 (71) 91 Nasal Cannula 4.0 11/01/17 22:01 36.7 112 24 96/53 (67) 98 Nasal Cannula 4.0 11/01/17 21:31 111 24 102/84 (90) 96 Nasal Cannula 4.0 11/01/17 21:00 110 16 85/60 (68) 95 Nasal Cannula 4.0 11/01/17 20:17 110 18 98 Nasal Cannula 4.0 11/01/17 20:05 Nasal Cannula 2.0 11/01/17 20:00 36.7 109 17 102/66 (78) 99 Nasal Cannula 4.0 11/01/17 19:30 108 15 86/64 (71) 98 Nasal Cannula 4.0 11/01/17 19:00 108 16 92/67 (75) 95 Nasal Cannula 4.0 11/01/17 18:00 108 19 92/63 (73) 95 Nasal Cannula 4.0 11/01/17 17:30 109 16 87/58 (68) 94 Nasal Cannula 4.0 11/01/17 17:22 109 20 76/52 (60) 87 Nasal Cannula 2.0 11/01/17 17:12 109 19 76/58 (64) 85 Nasal Cannula 2.0 11/01/17 17:10 110 17 79/57 (64) 86 Nasal Cannula 2.0 11/01/17 17:01 110 21 72/54 (60) 89 Nasal Cannula 2.0 11/01/17 16:00 Nasal Cannula 2.0 11/01/17 16:00 36.6 109 24 90/62 (71) 94 Nasal Cannula 2.0 Laboratory Results: Last 24 Hours Test 11/01/17 18:28 11/01/17 21:03 11/02/17 00:15 11/02/17 05:24 Bedside Glucose (other) 110 mg/dl 120 mg/dl Total Creatine Kinase 9 U/L Creatine Kinase MB 2.9 ng/ml Creatine Kinase MB Ratio 32.2 Troponin I 0.093 ng/ml White Blood Count 9.99 K/uL Red Blood Count 3.27 M/uL Hemoglobin 12.4 g/dL Hematocrit 39.1 % Mean Corpuscular Volume 119.6 fL Mean Corpuscular Hemoglobin 37.9 pg Mean Corpuscular Hemoglobin Concent 31.7 g/dl Platelet Count 109 K/uL Mean Platelet Volume 10.0 fL Neutrophils (%) (Auto) 87.6 % Lymphocytes (%) (Auto) 4.6 % Monocytes (%) (Auto) 7.2 % Eosinophils (%) (Auto) 0.1 % Basophils (%) (Auto) 0.1 % Neutrophils # (Auto) 8.75 K/uL Lymphocytes # (Auto) 0.46 K/uL Monocytes # (Auto) 0.72 K/uL Eosinophils # (Auto) 0.01 K/uL Basophils # (Auto) 0.01 K/uL RDW Standard Deviation 92.4 fL RDW Coefficient of Variation 21.1 % Immature Granulocyte % (Auto) 0.4 % Immature Granulocyte # (Auto) 0.04 K/uL Nucleated RBC Absolute Count (auto) 0.21 K/uL Nucleated Red Blood Cells % 2.1 % Anisocytosis PRESENT Macrocytosis PRESENT Spherocytes OCCASIONAL Prothrombin Time 18.7 SECONDS Prothromb Time International Ratio 1.8 Activated Partial Thromboplast Time 46.7 SECONDS Partial Thromboplastin Ratio 1.8 Sodium Level 135 mmol/L Potassium Level 5.0 mmol/L Chloride Level 102 mmol/L Carbon Dioxide Level 26 mmol/L Anion Gap 7.0 mmol/L Blood Urea Nitrogen 65 mg/dl Creatinine 4.24 mg/dl Est Creatinine Clear Calc Drug Dose 16.8 ml/min Estimated GFR () 14.2 Estimated GFR (Non- 12.3 BUN/Creatinine Ratio 15.4 Random Glucose 101 mg/dl Estimated Average Glucose 91 mg/dl Hemoglobin A1c 4.8 % Calcium Level 8.5 mg/dl Phosphorus Level 3.3 mg/dl Magnesium Level 2.4 mg/dl Total Bilirubin 1.4 mg/dl Direct Bilirubin 0.8 mg/dl Aspartate Amino Transf (AST/SGOT) 30 U/L Alanine Aminotransferase (ALT/SGPT) 28 U/L Alkaline Phosphatase 107 U/L Total Protein 6.0 gm/dl Albumin 2.3 gm/dl Thyroid Stimulating Hormone (TSH) 2.500 uIu/ml Random Vancomycin Level 30.6 mcg/ml Test 11/02/17 05:31 11/02/17 08:53 11/02/17 09:25 Bedside Glucose (other) 102 mg/dl Random Cortisol 42.18 mcg/dl Hepatitis B Surface Antigen NEG Hepatitis B Surface Antibody NEG
[2017-11-02] MEDS: HYDROmorphone INJ 0.5 MG/0.5 ML SYR IV PRN ×2 (17:00→22:57)
[2017-11-02] MEDS ORDERED: CEFTRIAXONE SOD INJ 2000 MG in DEXTROSE 5% 50ML IV SCH (18:00)
[2017-11-02] MEDS ORDERED: ATROPINE SULFATE 1% OP SOLN 5 ML BTL PO PRN (19:15)
[2017-11-02] MEDS ORDERED: LORAZEPAM 2 MG/ML 1 ML VIAL IV PRN (19:15)
[2017-11-02] MEDS ORDERED: LEVALBUTEROL 1.25MG/0.5ML NEB INH PRN (22:00)
[2017-11-03] VITALS: O2SAT 98
[2017-11-03] MEDS ORDERED: IPRATROPIUM BROMIDE NEB SOLN 0.02% 2.5 ML VIAL INH PRN
--- NOTE | 2017-11-03 00:16 | Hospitalist Progress Note ---
Hospitalist Progress Note Date of Service Nov 02, 2017. Subjective Pt evaluation today including: conversation w/ patient, conversation w/ information consultant (Trouble Locater, Palliative Care) Pt completely failed swallow study. Remained hypotensive and on pressors all day long. 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 ECHO showed significant right sided heart failure as well as moderate left sided systolic CHF. Discussed with Trouble Locater and will transfer to medical floor for MELANGEUR OPERATOR. He was weaned off pressors. When I saw pt around 1430 today, he had no complaints except pain in his legs. He was asking for help changing the channel on the TV and was mentating fine despite his very low readings on BPs. All Other Systems: Reviewed and Negative Objective Vital Signs Date Time Temp Pulse Resp B/P (MAP) Pulse Ox O2 Delivery O2 Flow Rate FiO2 11/02/17 21:01 106 20 98 Nasal Cannula 2.0 11/02/17 21:01 36.5 104 16 95 2.0 11/02/17 17:01 104 16 68/49 (55) 95 Nasal Cannula 4.0 11/02/17 16:31 104 17 75/35 (48) 99 Nasal Cannula 4.0 11/02/17 16:07 36.5 104 26 70/47 (55) 94 Nasal Cannula 4.0 11/02/17 16:01 103 20 58/40 (46) 90 Nasal Cannula 4.0 11/02/17 16:00 Nasal Cannula 4.0 11/02/17 15:30 106 17 71/50 (57) 91 Nasal Cannula 4.0 11/02/17 15:01 103 18 80/44 (56) 95 Nasal Cannula 4.0 11/02/17 14:40 103 20 96 Nasal Cannula 2.0 11/02/17 14:00 102 18 77/49 (58) 100 4.0 11/02/17 12:00 83 Nasal Cannula 4.0 11/02/17 11:00 105 26 85/60 (68) 90 11/02/17 10:00 122 28 93/58 (70) 97 Nasal Cannula 4.0 11/02/17 09:33 110 73/48 11/02/17 08:00 93 Nasal Cannula 4.0 11/02/17 08:00 Nasal Cannula 11/02/17 08:00 36.9 117 22 80/53 (62) 87 Nasal Cannula 4.0 11/02/17 07:42 110 20 96 Nasal Cannula 4.0 11/02/17 05:05 112 29 83/57 (66) 89 Nasal Cannula 4.0 11/02/17 04:30 110 19 87/53 (64) 89 Nasal Cannula 4.0 11/02/17 04:04 Nasal Cannula 2.0 11/02/17 04:01 110 19 86/52 (63) 89 Nasal Cannula 4.0 11/02/17 03:00 109 17 89/57 (68) 98 Nasal Cannula 4.0 11/02/17 02:30 109 15 90/57 (68) 98 Nasal Cannula 4.0 11/02/17 02:00 36.7 110 17 85/57 (66) 98 Nasal Cannula 4.0 11/02/17 01:49 110 20 95 Nasal Cannula 4.0 11/02/17 01:30 111 21 104/60 (75) 94 Nasal Cannula 4.0 11/02/17 01:00 110 18 88/62 (71) 88 Nasal Cannula 4.0 11/02/17 00:30 112 22 87/61 (70) 90 Nasal Cannula 4.0 11/02/17 00:25 Nasal Cannula 2.0 Physical Exam General Appearance: no apparent distress, + pertinent finding (appeared chronically ill) Eyes: sclerae normal ENT: hearing grossly normal Neck: trachea midline Respiratory/Chest: no respiratory distress, no accessory muscle use, + decreased breath sounds (at bases) Cardiovascular: + tachycardia (with reg rhythm) Abdomen: normal bowel sounds, non tender, soft Extremities: + pertinent finding (pitting edema/anasarca, venous stasis and multiple wounds chronic appearing on legs and toes) Neurologic/Psychiatric: alert, normal mood/affect Skin: warm/dry Laboratory Results Last 24 Hours Test 11/02/17 00:15 11/02/17 05:24 11/02/17 05:31 11/02/17 08:53 Bedside Glucose (other) 120 mg/dl 102 mg/dl White Blood Count 9.99 K/uL Red Blood Count 3.27 M/uL Hemoglobin 12.4 g/dL Hematocrit 39.1 % Mean Corpuscular Volume 119.6 fL Mean Corpuscular Hemoglobin 37.9 pg Mean Corpuscular Hemoglobin Concent 31.7 g/dl Platelet Count 109 K/uL Mean Platelet Volume 10.0 fL Neutrophils (%) (Auto) 87.6 % Lymphocytes (%) (Auto) 4.6 % Monocytes (%) (Auto) 7.2 % Eosinophils (%) (Auto) 0.1 % Basophils (%) (Auto) 0.1 % Neutrophils # (Auto) 8.75 K/uL Lymphocytes # (Auto) 0.46 K/uL Monocytes # (Auto) 0.72 K/uL Eosinophils # (Auto) 0.01 K/uL Basophils # (Auto) 0.01 K/uL RDW Standard Deviation 92.4 fL RDW Coefficient of Variation 21.1 % Immature Granulocyte % (Auto) 0.4 % Immature Granulocyte # (Auto) 0.04 K/uL Nucleated RBC Absolute Count (auto) 0.21 K/uL Nucleated Red Blood Cells % 2.1 % Anisocytosis PRESENT Macrocytosis PRESENT Spherocytes OCCASIONAL Prothrombin Time 18.7 SECONDS Prothromb Time International Ratio 1.8 Activated Partial Thromboplast Time 46.7 SECONDS Partial Thromboplastin Ratio 1.8 Sodium Level 135 mmol/L Potassium Level 5.0 mmol/L Chloride Level 102 mmol/L Carbon Dioxide Level 26 mmol/L Anion Gap 7.0 mmol/L Blood Urea Nitrogen 65 mg/dl Creatinine 4.24 mg/dl Est Creatinine Clear Calc Drug Dose 16.8 ml/min Estimated GFR () 14.2 Estimated GFR (Non- 12.3 BUN/Creatinine Ratio 15.4 Random Glucose 101 mg/dl Estimated Average Glucose 91 mg/dl Hemoglobin A1c 4.8 % Calcium Level 8.5 mg/dl Phosphorus Level 3.3 mg/dl Magnesium Level 2.4 mg/dl Total Bilirubin 1.4 mg/dl Direct Bilirubin 0.8 mg/dl Aspartate Amino Transf (AST/SGOT) 30 U/L Alanine Aminotransferase (ALT/SGPT) 28 U/L Alkaline Phosphatase 107 U/L Total Protein 6.0 gm/dl Albumin 2.3 gm/dl Thyroid Stimulating Hormone (TSH) 2.500 uIu/ml Random Vancomycin Level 30.6 mcg/ml Random Cortisol 42.18 mcg/dl Test 11/02/17 09:25 Hepatitis B Surface Antigen NEG Hepatitis B Surface Antibody NEG Assessment and Plan This pt is an 82-year-old male with end-stage renal disease on HD presenting from outside facility as a direct admission for hypotension and volume overload after symptoms of worsening SOB. ESRD on HD/Volume overload/Acute on chronic hypoxemic respiratory failure/Acute on chronic Severe biventricular systolic CHF --> CXR with evidence of pulm vasc congestion, bilat effusions, atelectasis. Bedside US by Pulm reveals no pleural effusions. Required 4 daily HD sessions recently. Due to profound hypotension requiring pressors, anasarca, too unstable for HD. After Palliative Care discussion, pt desires to stop HD treatments and be made comfortable -Nephrology consult appreciated -transfer to medical floor, stop all vasopressors -supplemental O2 as needed -Dilaudid prn pain, ativan prn anxiety/agitation, atropine drops for secretions A. Fib, SSS s/p PPM, ELevated troponin, Sustained Ventricular tachycardia?? on ECG-stable, troponin likely high but stable in setting of ESRD, ECG without acute ischemia -discontinue Amiodarone/Coumadin Suspected cellulitis right leg-elevated PCT, borderline elevated WBC count, afebrile -initially treated with broad spectrum abx with Levaquin, Vanco, Zosyn,but now will stop as not consistent with goals of care for comfort GERD/Poor swallowing ability - unable to safely swallow -consult Speech Therapy appreciated -pureed feeds for comfort if desired Diabetes Mellitus II: -dc insulin and accuchecks for comfort Hypothyroidism: -discontinue Levothyroxine. DNR/DNI Dispo-transfer to medical floor for MELANGEUR OPERATOR
[2017-11-03] MEDS: HYDROmorphone INJ 0.5 MG/0.5 ML SYR IV PRN ×2 (03:02→08:30)
[2017-11-03] MEDS: LEVOTHYROXINE 112 MCG TAB PO SCH (06:30)
[2017-11-03 08:15] VITALS: BP 81/38; PULSE 93; TEMP 34.5; O2SAT 91
[2017-11-03] MEDS ORDERED: PROCHLORPERAZINE INJ 5 MG in SYRINGE 4 ML IV STA (08:51)
[2017-11-03] MEDS ORDERED: NURSING VERBAL MED ORDER ONE (09:15)
[2017-11-03] MEDS ORDERED: DiphenhydrAMINE HCL 50 MG/ML VIAL IV PRN (09:30)
--- NOTE | 2017-11-03 09:31 | Nephrology Progress Note ---
Nephrology Progress Note Date of Service Nov 03, 2017. Chief Complaint ESRD Subjective Reji was transferred to the medical floor for comfort measures only. He is receiving Dilaudid PRN for dyspnea. The patient's granddaughter was at the bedside this morning. She notes that he has appeared comfortable and she has been helping with breakfast at this request. Reji was lethargic but able to answer questions. He has some aspiration bu continues to eat very small amounts as tolerated for comfort. Dyspnea reasonably improved with medications but Reji is reporting nausea and a generalized itch. Family and patient have asked to not continue hemodialysis. Review of Systems A complete review of systems was performed. Pertinent positives are noted above. All other systems are negative. Vital Signs Last 8 Hrs Date Time Temp Pulse Resp B/P (MAP) Pulse Ox O2 Delivery O2 Flow Rate FiO2 11/03/17 08:15 34.5 93 18 81/38 (52) 91 Last Recorded Weight Weight (Kilograms): 101.000 Physical Exam General Appearance: no apparent distress, + thin, + pertinent finding ( chronically ill) Head: normocephalic, atraumatic Eyes: normal inspection, sclerae normal ENT: normal ENT inspection, + pertinent finding (oral mucosa dry) Neck: supple, + JVD Respiratory/Chest: + decreased breath sounds, + rales Cardiovascular: + tachycardia Abdomen/GI: non tender, soft Extremities/Musculoskelatal: normal inspection, + pedal edema Neurologic/Psych: alert, + depressed affect Social History Smokeless Tobacco Use: No Alcohol Use: none Drug Use: none Marital Status: Occupation: retired Laboratory Results Past 24 Hours Test 11/02/17 09:25 Hepatitis B Surface Antigen NEG (NEG) Hepatitis B Surface Antibody NEG Allergies Coded Allergies: Clonidine (Unverified Allergy, Unknown, Unknown, 11/01/17) Erythromycin (Unverified Allergy, Unknown, Unknown, 11/01/17) Glyburide (Unverified Allergy, Unknown, Unknown, 11/01/17) Metolazone (Unverified Allergy, Unknown, Unknown, 11/01/17) Olmesartan (Unverified Allergy, Unknown, unkown, 11/01/17) Simvastatin (Unverified Allergy, Unknown, Unknown, 11/01/17) Medications Current Inpatient Medications Medications (Trade) Dose Ordered Sig/Monica Route Start Time Stop Time Status Last Admin Dose Admin Levothyroxine Sodium (Synthroid Tab) 112 mcg DAILYBB PO 11/01/17 06:00 12/01/17 05:59 Oxycodone HCl (Roxicodone Immediate Rel Tab) 2.5 mg Q12H PRN PO 11/01/17 05:45 11/15/17 05:44 Hydromorphone HCl (Dilaudid Inj) 0.25 mg Q4H PRN IV 11/01/17 12:30 11/15/17 12:29 11/03/17 08:30 0.25 MG Lorazepam (Ativan Inj) 1 mg Q4H PRN IV 11/02/17 19:15 12/02/17 19:14 Atropine Sulfate (Atropine Sulfate 1% Oph Soln) 2 drops Q2H PRN PO 11/02/17 19:15 12/02/17 19:14 Levalbuterol (Xopenex 1.25MG/ 0.5ML Neb) 1.25 mg PRN PRN INH 11/02/17 22:00 12/01/17 08:59 Ipratropium [place] (Atrovent 0.02% 0.5MG/2.5ML Neb) 0.5 mg Q4R PRN INH 11/03/17 00:00 12/03/17 00:00 Miscellaneous Information (Nursing Verbal Med Order) 1 ea ONE ONCE N/A 11/03/17 09:15 11/03/17 09:16 UNV Diphenhydramine HCl (Benadryl Inj) 25 mg Q6 PRN IV 11/03/17 09:30 12/03/17 09:29 Impression (1) ESRD on hemodialysis (2) CHF (congestive heart failure) (3) Hypotension Mr. Reji Boles is a frail 82-year-old male with multiple comorbidities including end-stage renal disease on hemodialysis, autonomic dysfunction, chronic systolic CHF, requiring nasal cannula oxygen at home. Hemodialysis has been complicated by hypotension. There was some improvement on Thursday with sodium modeling. 2 L removed at that time. Reji has right and left heart failure. Severe right heart failure and pulmonary hypertension demonstrated on echocardiogram. After discussion with the patient and family in the ICU yesterday, the patient transitioned to comfort measures only. Recommendations -- Prochlorperazine provided for nausea -- Antihistamines for itch -- Patient appears comfortable at this time -- Supportive care provided to family -- Will discuss with Dr. Lizama
[2017-11-03] MEDS ORDERED: MoRPHine SULFATE 5 MG/0.25 ML UDP PO PRN (10:00)
[2017-11-03] MEDS ORDERED: BISACODYL 10 MG SUPP PR PRN (10:15)
[2017-11-03] MEDS ORDERED: MoRPHine SULFATE 2 MG/ML CARP IV PRN (10:15)
[2017-11-03] MEDS ORDERED: HYDROmorphone INJ 0.5 MG/0.5 ML SYR IV PRN (10:15)
[2017-11-03] MEDS ORDERED: MoRPHine SULFATE 2 MG/ML CARP ONE (10:20)
--- NOTE | 2017-11-03 10:21 | Hospitalist Progress Note ---
Hospitalist Progress Note Date of Service Nov 03, 2017. 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 C/o pain all over his body, feels like he can't catch his breath. Was itching all over last night starting in the neck around his LIJ CVC after getting IV Dilaudid, received Benadryl. Feels nauseated this AM and received compazine. Discussed care with family members at bedside Abdomen: + constipation All Other Systems: Reviewed and Negative Objective Vital Signs Date Time Temp Pulse Resp B/P (MAP) Pulse Ox O2 Delivery O2 Flow Rate FiO2 11/03/17 08:15 34.5 93 18 81/38 (52) 91 11/03/17 00:00 98 Nasal Cannula 2.0 11/02/17 21:01 106 20 98 Nasal Cannula 2.0 11/02/17 21:01 36.5 104 16 95 2.0 11/02/17 17:01 104 16 68/49 (55) 95 Nasal Cannula 4.0 11/02/17 16:31 104 17 75/35 (48) 99 Nasal Cannula 4.0 11/02/17 16:07 36.5 104 26 70/47 (55) 94 Nasal Cannula 4.0 11/02/17 16:01 103 20 58/40 (46) 90 Nasal Cannula 4.0 11/02/17 16:00 Nasal Cannula 4.0 11/02/17 15:30 106 17 71/50 (57) 91 Nasal Cannula 4.0 11/02/17 15:01 103 18 80/44 (56) 95 Nasal Cannula 4.0 11/02/17 14:40 103 20 96 Nasal Cannula 2.0 11/02/17 14:00 102 18 77/49 (58) 100 4.0 11/02/17 12:00 83 Nasal Cannula 4.0 11/02/17 11:00 105 26 85/60 (68) 90 Physical Exam General Appearance: no apparent distress (lying in bed with eyes closed but answers some questions) Eyes: sclerae normal ENT: + pertinent finding (NAKNEK) Neck: trachea midline, + pertinent finding (LIJ CVC in place without surrounding erythema) Respiratory/Chest: no respiratory distress, no accessory muscle use, + decreased breath sounds (at bases bilat) Cardiovascular: regular rate, rhythm, + systolic murmur (2/6 at LLSB), + pertinent finding (2-3+ pitting edema legs bilat, 1+ edema UEs bilat, chronic venous stasis changes legs, multiple chronic wounds feet and tibia) Abdomen: normal bowel sounds, non tender, soft Extremities: + swelling (as above) Neurologic/Psychiatric: + pertinent finding (drowsy) Skin: + pertinent finding (venous stasis changes, cool limbs bilat) Assessment and Plan This pt is an 82-year-old male with end-stage renal disease on HD presenting from outside facility as a direct admission for hypotension and volume overload after symptoms of worsening SOB. ESRD on HD/Volume overload/Acute on chronic hypoxemic respiratory failure/Acute on chronic Severe biventricular systolic CHF --> CXR with evidence of pulm vasc congestion, bilat effusions, atelectasis. Bedside US by Pulm reveals no pleural effusions. 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 After Palliative Care discussion, pt desires to stop HD treatments and be made comfortable Has pain all over bpdy but mostly in legs likely secondary to PVD -Nephrology consult appreciated -transferred to medical floor on 11/02 and stopped all vasopressors -supplemental O2 as needed -had itching with IV Dilaudid--> change to IV morphine and Roxanol 5mg po both q1 hour prn -continue ativan prn anxiety/agitation, atropine drops for secretions -Bisacodyl for constipation A. Fib, SSS s/p PPM, Elevated troponin, Sustained Ventricular tachycardia?? on ECG-stable, troponin likely high but stable in setting of ESRD, ECG without acute ischemia -discontinued Amiodarone/Coumadin as on BOAT PAINTER Suspected cellulitis right leg-elevated PCT, borderline elevated WBC count, afebrile -initially treated with broad spectrum abx with Levaquin, Vanco, Zosyn,but then stopped as not consistent with goals of care for comfort GERD/Poor swallowing ability - unable to safely swallow -consult Speech Therapy appreciated -pureed feeds for comfort if desired Diabetes Mellitus II: -dc insulin and accuchecks for comfort Hypothyroidism: -discontinued Levothyroxine. DNR/DNI Dispo-will remain here for now to ensure adequate pain control, could potentially return to NH if desired, prognosis for passing away likely within 2- 3 days
[2017-11-03] MEDS ORDERED: LEVOFLOXACIN 500MG / D5W IV SCH (11:00)
[2017-11-03] MEDS ORDERED: MoRPHine SULF/NSS 250MG/250ML 250 ML IV PRN (14:30)
[2017-11-03] MEDS ORDERED: MoRPHine SULF/NSS INJ 1 MG/ML 250 ML BTL ONE (14:39)
[2017-11-03 15:48] VITALS: BP 66/48; PULSE 73; TEMP 36.4
--- NOTE | 2017-11-03 17:33 | Death Pronouncement Note ---
Pronouncement Note Date & Time of Nov 03, 2017. 16:50 Pronouncement At time of pronouncement the patients pupils were fixed and dilated, there was no spontaneous respiratory effort, no palpable pulse, no audible heart tones, and no response to pain or voice.
--- NOTE | 2017-11-04 00:46 | Death Summary ---
Summary of Admission Date Nov 01, 2017 at 04:52 Date & Time of Nov 03, 2017. 16:50 Cause of ESRD on HD Secondary Diagnoses Hypotension Acute on chronic systolic biventricular CHF Acute on chronic hypoxemic respiratory failure PVD Constipation Permanent Atrial fibrillation SSS s/p PPM Elevated troponin Wide complex tachycardia Suspected cellulitis right leg GERD Dysphagia-severe Diabetes Mellitus II Hypothyroidism Hospital Course This pt is an 82-year-old male with end-stage renal disease on HD presenting from outside facility as a direct admission for hypotension and volume overload after symptoms of worsening SOB. ESRD on HD/Volume overload/Acute on chronic hypoxemic respiratory failure/Acute on chronic Severe biventricular systolic CHF --> CXR with evidence of pulm vasc congestion, bilat effusions, atelectasis. Bedside US by Pulm reveals no pleural effusions. 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 After Palliative Care discussion, pt desires to stop HD treatments and be made comfortable Has pain all over body but mostly in legs likely secondary to PVD -Nephrology consult appreciated -transferred to medical floor on 11/02 and stopped all vasopressors -was given supplemental O2 as needed -had itching with IV Dilaudid--> change to IV morphine and Roxanol 5mg po both q1 hour prn--> added Morphine gtt for pain -was prescribed ativan prn anxiety/agitation, atropine drops for secretions -he peacefully at 1650 on 11/03/17 A. 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 Copy To Delano Gomes D.O.
== END 2017-11-03 19:28 | disposition expired | DRG 291 ==
LOC: C.MSICU 11-01 04:52 → ENRESERV 11-02 19:38 → C.4E 11-02 21:05
PROVIDERS: ADMIT Hospitalist; ATTEND Family Medicine
PROC: 05H633Z Insertion of Infusion Device into Left Subclavian Vein, Percutaneous Approach (ICD-10-PCS; principal; 2017-11-01)
DX: I13.0 Hypertensive heart and chronic kidney disease with heart failure and stage 1 through stage 4 chronic kidney disease, or unspecified chronic kidney disease (principal); N18.6 End stage renal disease; J96.21 Acute and chronic respiratory failure with hypoxia; I50.23 Acute on chronic systolic (congestive) heart failure; J81.1 Chronic pulmonary edema; N17.9 Acute kidney failure, unspecified; L03.115 Cellulitis of right lower limb; I95.9 Hypotension, unspecified; E87.70 Fluid overload, unspecified; I49.5 Sick sinus syndrome; G47.33 Obstructive sleep apnea (adult) (pediatric); I48.91 Unspecified atrial fibrillation; E11.9 Type 2 diabetes mellitus without complications; M10.9 Gout, unspecified; E03.9 Hypothyroidism, unspecified; K21.9 Gastro-esophageal reflux disease without esophagitis; M19.90 Unspecified osteoarthritis, unspecified site; Z86.14 Personal history of Methicillin resistant Staphylococcus aureus infection; I50.9 Heart failure, unspecified; E78.5 Hyperlipidemia, unspecified; Z79.01 Long term (current) use of anticoagulants